=== PATIENT | female | born 2000 | race Caucasian/White ===

== ENCOUNTER 2018-12-25 09:50 | Outpatient (REF) | payer MEDICAID, SELFPAY | END 2018-12-25 10:10 | LOC: NCHCN 09:50 | PROVIDERS: Visit Provider Family Medicine | DX: R19.7 Diarrhea, unspecified (principal) | CPT/HCPCS: 87324 ==

== ENCOUNTER 2019-01-12 01:12 | Outpatient (CLI) | payer MEDICAID, MEDICARE, SELFPAY ==
--- NOTE | 2019-01-12 14:00 | NS.NUTBLAN_ITS ---
DESCRIPTION: Bambi Sanderson was brought in for medical nutrition therapy for underweight as evidenced by BMI estimated at 14 based on height of 5'. She is accompanied by 3 caregivers. Caregivers report she is tube fed 5 cans Ensure per day in 4 servings; Recently increased from 4.5 to 5 cans with ~2 weeks of vomiting post increase. Otherwise does not have any observable problems with her nutritional status reported by caregivers. Bambi is unable to walk and appears wheelchair bound. She does not communicate with words. She is unable to hold her head up independently for oral feeding. Her lab work from 05/04 indicate low iron. Otherwise no remarkable nutrition indicators seen. INTERVENTION: Given that weight gain is desired by caregivers, discussed ways to increase her weight slowly by increasing calories gradually. She had difficulty with an increase of 2 ounces every 4 hours. Discussed a more concentrated formula that does not increase volume. Agreed upon assessment with instructions recommended as follows: Weight to reach BMI 19 based on estimated height of 60? is 96 pounds. Reasonable weight increase over the next year is to reach 70 pounds. Based on her current body weight and estimated height ? Basal Energy Expenditure = 1100 calories. Current 5 cans Ensure ? 1100 calories In order to gain 1 pound/month increase calories by ~ 100 calories per day. Exchanging 1 can Ensure for 1 can Ensure Plus divided over her 4 daily feedings would provider her 130 calories extra per day. RECOMMENDATION: Suggest exchanging 1 can Ensure for 1 can Ensure Plus divided over 4 feedings. Assess acceptance by Bambi. She will receive 4 cans of Ensure and 1 can Ensure Plus to achieve 1230 kcal per day divided into 4 doses. Will consider a balanced formula containing additional fiber (Jevity) to attempt to improve constipation in the future, if desired.
== END 2019-01-12 01:32 ==
PROVIDERS: Visit Provider Dietitian, Registered
DX: R63.6 Underweight (principal); Z71.3 Dietary counseling and surveillance
CPT/HCPCS: 97802

== ENCOUNTER 2019-06-04 01:21 | Outpatient (CLI) | payer MEDICARE, MEDICAID, SELFPAY ==
--- NOTE | 2019-06-04 10:00 | NS.NUTBLAN_ITS ---
Description: Bambi was brought in for medical nutrition therapy by new caregivers and guardian for monitoring her weight and tolerance of bolus tube feedings. She was recently weighed at her MD visit and weighed 70 lbs. She was not weighed in office today as we do not have wheel chair accessible scale. She is 5 feet and is wheel chair bound. Her BMI is 14 but may not accurately reflect ideal weight as with paraplegia. She is 100% reliant on peg feedings now and caregivers are well trained in her care. Caregivers report she does not tolerate the liquid iron and they have stopped giving it do her as she frequently vomits when administered. They also report that she vomits up to 4 times a week when being suctioned. Bowel movements are regular. She is tolerating her 4 - 300 ml -bolus feedings (960 ml Ensure, 240 ml Ensure Plus) with 50 ml flush before and 150 ml after each bolus feeding. Current Regime provides total of 1350 kcal, 63 g protein, 1700 ml free water. Estimated needs for weight gain: 2355-9253 kcal, 40-50 g protein, 1000 ml free water. Meeting > 100% nutrient and fluid needs at this time. Since weight has increased since last visit (per caregivers) assume that Bambi is meeting her nutrient needs despite frequent vomiting with suctioning. No change in tube feeding/flushes warranted at this time. Of concern is low Hgb of 9.2 2018. Currently meeting > 100% of [employer] for iron in enteral feeding. recommend recheck Hgb/ferritin at next blood draw to determine if iron drops necessary or if enteral feeding adequately providing needed iron for repletion. Would also recommend checking B12 levels to rule out pernicious anemia. Plan: at next MD visit- recheck: Hgb, ferritin, B12, Vit D Continue current enteral feeding regime- 4 bolus feedings (4 cans ensure, 1 can ensure plus) continue flushes of 50 ml prior to feeding/150 ml after each feeding follow up in 3 months if weight has decreased or not tolerating enteral feeding.
== END 2019-06-04 01:41 ==
PROVIDERS: PCP Family Medicine; Visit Provider Dietitian, Registered
DX: R63.6 Underweight (principal); G80.8 Other cerebral palsy; Z93.1 Gastrostomy status; Z71.3 Dietary counseling and surveillance
CPT/HCPCS: 97803

== ENCOUNTER 2019-06-20 17:42 | Emergency (ER) | payer MEDICARE, MEDICAID, SELFPAY ==
[2019-06-20 17:37] VITALS: BP 133/77; PULSE 116; TEMP 36.8; O2SAT 97
--- NOTE | 2019-06-20 18:23 | W.ED.GENAD ---
Discharge Plan Disposition Patient Disposition: HOME Condition: Stable Discharge Details Chief Complaint: Abd Prob Clinical Impression: Dislodged gastrostomy tube Primary Care Provider: Karely Nguyen V ED Provider: Susana Duran Home Meds and New Rx's Prescriptions: Continued albuterol sulfate [ProAir HFA] 8.5 GM HFA aerosol inhaler 2 puff Inhalation Q4H PRN PRNRF: 0 zinc oxide [Desitin] 57 GM cream 1 applic Topical DIRECTED RF: 0 Discharge Instructions Instructions: How to Use and Care for Your PEG Tube (ED) Additional Instructions: Follow-up with your primary care doctor within the next week as needed. Return to the emergency department if you develop any worsening or concerning symptoms such as fever, persistent vomiting or malfunctioning G-tube. Discharge Data Discharge Date/Time-TO BE ENTERED AT DEPARTURE: 06/20/19 18:30 Discharge Physician: Susana Duran Medical Decision Making 18-year-old female with a history of developmental delay, cerebral palsy, with PEG tube placed 4 years ago presents for dislodged G-tube 10 minutes prior to arrival. Patient arrived with both caregivers and new G-tube kit. They state she has a history of pulling at the G-tube. They deny any fever or vomiting. Patient arrived during critical surge in ED. Surgery on-call Dr. Barr consulted and she evaluated patient at bedside and replaced with new G-tube. Patient appears nontoxic. Her abdomen is soft and nontender. No indication for any further labs or imaging. Patient cleared for discharge. Caregivers feel comfortable with patient going home. Advised to follow-up with her primary care doctor and return here with any concerns. HPI General Mode of arrival: EMS. Date/Time Provider Initiated Documentation: 06/20/19 17:47. Limitations to Documentation: physical limitation. Information obtained by: family (2 caretakers). Related Data Home Medications Medication Instructions Recorded Confirmed albuterol sulfate [ProAir HFA] 2 puff INHALATION Q4H PRN PRN 05/16/17 05/28/17 zinc oxide [Desitin] 1 applic TOPICAL DIRECTED 05/16/17 05/28/17 Allergies Allergy/AdvReac Type Severity Reaction Status Date / Time amoxicillin [From Augmentin] AdvReac Unknown moderate Unverified 06/20/19 17:47 clavulanic acid AdvReac Unknown moderate Unverified 06/20/19 17:47 [From Augmentin] General Stated Complaint: Abd Prob PIERO: 3 Review of Systems All systems reviewed & are unremarkable except as noted in HPI and below Constitutional Constitutional: Reports as per HPI, Denies chills and Denies fever(s) Gastrointestinal Gastrointestinal: Denies vomiting Integumentary/Breasts Skin/Breast: Denies lesions and Denies rash [facility] Medical History Asthma (Chronic) Cognitive developmental delay (Acute) Hip dysplasia (Acute) History of cerebral palsy (Acute) Surgical History S/P percutaneous endoscopic gastrostomy (PEG) tube placement (Acute) Social History Do you feel safe in your relationship?: Yes Exam Const General: cooperative, no acute distress and ill appearing chronically HENMT Head: normal to inspection Eyes General: appearance normal, both eyes and all related structures Neck Neck: normal visual inspection and No submandibular swelling Resp Effort & Inspection: normal respiratory effort Auscultation: clear to auscultation bilaterally Cardio Rate: tachycardic Rhythm: regular rhythm GI Palpation: soft, not firm, not rigid and nontender Auscultation: hypoactive bowel sounds Other: G-tube present in epigastrium. No surrounding edema, erythema, ecchymosis, bleeding, drainage, induration or fluctuance. Skin General skin exam: no rashes or lesions noted Neuro General: awake and moves all extremities Extrem General: no edema Other: Small atrophied extremities Course Vital Signs Vital signs: Vital Signs Temperature 98.2 F 06/20/19 17:37 Pulse 116 H 06/20/19 17:37 Blood Pressure 133/77 06/20/19 17:37 Pulse Oximetry 97 06/20/19 17:37 Temperature 98.2 F 06/20/19 17:37 Temperature Source Skin 06/20/19 17:37 Pulse 116 H 06/20/19 17:37 Respiratory Effort Non-Labored 06/20/19 17:45 Blood Pressure 133/77 06/20/19 17:37 Blood Pressure Position Supine 06/20/19 17:37 Pulse Oximetry 97 06/20/19 17:37 Oxygen Delivery Method Room Air 06/20/19 17:37 Oxygen Flow Rate 0 06/20/19 17:37
--- NOTE | 2019-06-21 10:32 | ROE_ITS ---
DATE OF PROCEDURE: June 20, 2019 PREOPERATIVE DIAGNOSIS: Unintended dislodgement of feeding tube. POSTOPERATIVE DIAGNOSIS: Same. PROCEDURE: Insertion of new feeding tube. SURGEON: Hilda Barr D.O. ANESTHESIA: None. ESTIMATED BLOOD LOSS: None. CONDITION: The patient tolerated the procedure well without complication. 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 Her feeding tube fell out today. She's had the feeding tube in for approximately five years. She was due for a schedule feeding tube. Her caregivers do bring in the new tube and it's a 16 [place], 2 cm tube. EXAM/PROCEDURE: Her fistulous opening is well matured. There is no redness, drainage of swelling. There is normal granulation tissue. The new tube is inserted. It is not floppy or tight. The balloon is inflated with 5 cc's of water. There is immediate return of gastric contents. It is easily flushed and capped. The incision is clean, dry and intact. There is no redness, drainage or swelling. The patient doesn't have any pain. Sterile dressing is placed around the tube and the patient is discharged into the company of her caregivers back to her skilled nursing. They can use her feeding tube tonight.
== END 2019-06-20 18:30 | disposition home or self-care (01) ==
PROVIDERS: Emergency Provider Physician Assistant; PCP Family Medicine
DX: K94.29 Other complications of gastrostomy (principal); G80.9 Cerebral palsy, unspecified
CPT/HCPCS: 43762; 99284; 99283

== ENCOUNTER 2019-11-02 14:29 | Outpatient (CLI) | payer MEDICARE, MEDICAID, SELFPAY ==
--- NOTE | 2019-11-02 14:41 | DI.RAD_ITS ---
EXAM: XR HIP PELVIS ADULT BL CLINICAL HISTORY: HIP PAIN. TECHNIQUE: 2D digital imaging was performed. COMPARISON: CT ABD PELVIS WO CONTRAST from 06/01/2017 FINDINGS: The right femoral head is dislocated posterior and superior to the acetabulum. This appears to be a chronic finding. Was seen on previous CT from 18. There is deformity of both proximal femurs. No l eft hip dislocation is seen. There is no gross evidence of fracture. The sacrum is obscured by stoo l and bowel gas. IMPRESSION: Chronic right hip dislocation and chronic deformities of the proximal femurs. DATA REPOSITORY: RADIATION DOSE DELIVERED:
== END 2019-11-02 14:49 ==
PROVIDERS: PCP Family Medicine; Referring Provider Family Medicine; Visit Provider Student in an Organized Health Care Education/Training Program
DX: M25.551 Pain in right hip (principal); M24.451 Recurrent dislocation, right hip; M89.8X6 Other specified disorders of bone, lower leg
CPT/HCPCS: 73521; 99204; 99215

== ENCOUNTER 2019-11-02 15:56 | Outpatient (REF) | payer MEDICARE, MEDICAID, SELFPAY ==
[2019-11-02 19:39] LABS: HCT 37.2 % (36.0-46.0); HGB 11.6 g/dL (12.0-15.5); Mean Corp. HGB Concentration 31.2 g/dL (32.0-36.0); Mean Corpuscular Hemoglobin 26.2 pg (27.0-33.0); Mean Platelet Volume 10.6 fL (8.0-11.0); Platelet Count 372 x1000/uL (130-400); RBC 4.43 m/cumm (4.00-5.20); RBC Distribution Width 13.7 % (11.7-14.6); White Blood Cell Count 4.61 k/cumm (4.4-10.8)
[2019-11-02 20:29] LABS: ALT 31 U/L (14-59); AST 22 U/L (15-37); Albumin 3.6 g/dL (3.4-5.0); Alkaline Phosphatase 111 U/L (46-116); Anion Gap 9.8 mmol/L (3-11); BUN 11 mg/dL (7-18); Bilirubin, Total 0.2 mg/dL (0.2-1.0); CO2 29.2 mmol/L (21.0-32.0); CREATININE 0.41 mg/dL (0.55-1.02); Calcium 9.2 mg/dL (8.5-10.1); Chloride 103 mmol/L (98-107); Ferritin 100 ng/mL (8-252); Glucose 88 mg/dL (74-106); Potassium 4.4 mmol/L (3.5-5.1); Sodium 142 mmol/L (136-145); TSH 1.53 uIU/mL (0.36-3.74); Total Protein 7.5 g/dL (6.4-8.2)
[2019-11-02 20:31] LABS: Folate > 20.0 ng/mL (8.6-20.0)
[2019-11-02 22:37] LABS: C-Reactive Protein 1.22 mg/dL (0.0-0.3)
[2019-11-04 09:37] LABS: Vitamin B12 1256 pg/mL (211-911)
== END 2019-11-02 16:16 ==
LOC: NCHCN 15:56
PROVIDERS: PCP Family Medicine; Visit Provider Family Medicine
DX: D64.9 Anemia, unspecified (principal)
CPT/HCPCS: 80053; 85027; 82607; 82728; 82746; 84443; 86140

== ENCOUNTER 2019-11-04 10:07 | Outpatient (CLI) | payer MEDICARE, MEDICAID, SELFPAY | END 2019-11-04 10:27 | PROVIDERS: PCP Family Medicine; Visit Provider Family Medicine | DX: R69 Illness, unspecified (principal) | CPT/HCPCS: 99204 ==

== ENCOUNTER 2019-12-17 13:53 | Outpatient (CLI) | payer MEDICARE, MEDICAID, SELFPAY ==
--- NOTE | 2019-12-17 13:00 | NS.NUTBLAN_ITS ---
Bambi was brought in by home care provider (Christine) for medical nutrition therapy to follow up on enteral feeding regime. This is second visit, initial visit 06/04/19. Bambi has CP, cleft palate, paraplegic and reliant on enteral feeding for 100% nutrient and fluid needs. Bambi has gained 9 lbs in last 6 months. Estimated Needs for weight gain: 9806-3258 kcal, 40-50 g protein, 1300 ml fluid. Current tube feeding regime 4 feedings of 300 ml (run over 2 hours)- 960 ml Ensure, 237 ml Ensure Plus. Flushes 60 ml prior to feeding, 80 ml post feeding providing a total of 1350 kcal, 63 g protein, 1510 ml free water. Christine, reports that Bambi is tolerating her tube feeding, needs less suctioning but continues to vomit every other day or so. Bambi has gained 29 lbs in the last year. Labs (11/02/19) B12: 1256 H, folate > 20 H, Hgb 11.6 L. BM reported as regular, mirilax given as needed. No longer needs to strain for BM. Liquid iron added to tube feeding. Assessment: Bambi is meeting 100% of nutrient and fluid needs for weight gain via peg. Tolerating current enteral feeding, continues to have some vomiting related to increased secretions that require suctioning. Secretion have improved, vomiting has reduced and does not appear to significantly impact nutrient intake. Bambi appears well cared for, well nourished and hydrated. Goal weight initially set as 96 lbs, however, due to her paraplegia, inactivity, reduced muscle formation, recommend goal weight as 80-85 lbs. Recommend to continue current tube feeding until goal weight of 80-85 lbs, then will reduce her caloric intake to for weight maintenance. Labs indicate improved hemoglobin, hypercobalaminemia noted but current tube feeding does not provide excessive B12 or folic acid (meeting 100% RDI). Recommend discontinue iron supplement at this time as receiving 125% RDI in enteral formula which is adequate for repletion with current Hgb level. . Recommend adding 2 more free water flushes (100-200 ml) between feedings when temp > 80 F or if BM becomes hard. Plan: 1. continue current tube feeding regime, add 2 additional flushes (100-200 ml) in between feedings when temp > 80 F. 2. d/c Iron supplement at this time as enteral feeding contains sufficient iron at this time 3. follow up in 6 months or if weight > 85 lbs for tube feeding adjustment for weight maintenance or if unable to tolerate tube feedings.
== END 2019-12-17 14:13 ==
PROVIDERS: PCP Family Medicine; Visit Provider Dietitian, Registered
DX: R63.6 Underweight (principal); Z93.1 Gastrostomy status; Z71.3 Dietary counseling and surveillance
CPT/HCPCS: 97803

== ENCOUNTER 2020-06-06 04:23 | Outpatient (CLI) | payer MEDICARE, MEDICAID, SELFPAY ==
--- NOTE | 2020-06-06 13:00 | NS.NUTBLAN_ITS ---
Astrid returns with critical care transport nurse Xenia for reassessment of tube feeding prescription. Ozzie lift: 92.4 lbs. Astrid is up 5 lbs in last 6 months. Xenia reports that Astrid is menstruating and that she has become more vocal and interactive. Xenia reports less suctioning is needed and vomiting is seldom. BM typically daily, mirilax used prn. She is tolerating liquid iron as prescribed. Estimated Needs for weight maintenance: 900-1000 kcal, 38-40 g protein, 1230 ml free water At this time, Astrid has reached her goal weight (92-95 lbs) and we can decrease the amount of tube feeding provided. I recommend switching to 3 feedings daily of ensure plus(1 can per feeding) with 100 ml flush pre and post bolus. Continue to run each feeding over 1-2 hours or as tolerated. This will provide: 1080 kcal, 40 g protein, 1140 ml free water. Provide extra flushes as needed. Plan: change enteral feeding to: 3 cans daily Ensure Plus Daily ( 237 x 3= 711 ml) 3 feedings daily of: 237 ml Ensure Plus, flush 100 ml before and after each feeding ( 600 ml daily) follow up in 6 months for weigh check
== END 2020-06-06 04:43 ==
PROVIDERS: PCP Family Medicine; Visit Provider Dietitian, Registered
DX: E43 Unspecified severe protein-calorie malnutrition (principal); Z93.1 Gastrostomy status; Z71.3 Dietary counseling and surveillance
CPT/HCPCS: 97803

== ENCOUNTER 2020-08-25 16:32 | Outpatient (REF) | payer MEDICARE, MEDICAID, SELFPAY ==
[2020-08-25 15:07] LABS: HCT 34.3 % (36.0-46.0); HGB 10.8 g/dL (11.2-15.7); MCH 25.5 pg (27.0-33.0); MCHC 31.5 % (32.0-36.0); MCV 80.9 fL (80-95); MPV 10.3 fL (8.0-11.0); Platelet Count 411 10^3/uL (130-400); RBC 4.24 10^6/uL (3.93-5.22); RDW-SD 40.4 fL; WBC 4.36 10^3/uL (4.4-10.8)
[2020-08-25 15:37] LABS: ALT 24 U/L (14-59); AST 18 U/L (15-37); Albumin 3.1 g/dL (3.4-5.0); Alkaline Phosphatase 75 U/L (46-116); Anion Gap 8.8 mmol/L (3-11); BUN 8 mg/dL (7-18); Bilirubin, Total 0.1 mg/dL (0.2-1.0); CO2 29.2 mmol/L (21.0-32.0); CREATININE 0.3 mg/dL (0.55-1.02); Calcium 8.9 mg/dL (8.5-10.1); Chloride 105 mmol/L (98-107); Ferritin 71 ng/mL (8-252); Glucose 101 mg/dL (74-106); Potassium 4.1 mmol/L (3.5-5.1); Sodium 143 mmol/L (136-145); Total Protein 6.8 g/dL (6.4-8.2)
== END 2020-08-25 16:33 | disposition home or self-care (01) ==
LOC: NCHCN 16:32
PROVIDERS: PCP Family Medicine; Visit Provider Family Medicine
DX: D64.9 Anemia, unspecified (principal); G80.1 Spastic diplegic cerebral palsy; Z93.1 Gastrostomy status
CPT/HCPCS: 80053; 85027; 82728

== ENCOUNTER 2021-12-17 12:01 | Outpatient (CLI) | payer MEDICARE, MEDICAID, SELFPAY ==
--- NOTE | 2021-12-17 14:27 | W.NUTRFU ---
Date of service: 12/17/21 Time of Service: 14:28 Nutrition Note NOTE: Spoke to Faith on phone today, she is Bambi's home care provider. She reports that Bambi has lost weight, weighed 86 lbs, down from 93 lbs a couple of months ago. Iron remains on low end. Estimated Needs: 2204-0909 kcal, 42-50 g protein, 1260 ml fluid Goal Wt: 92 lbs PEG feedings: 3 cartons of Ensure Plus daily providing 1050 kcal, 42 g protein, 33 g fat, 540 ml free water. Receives 600 ml flushes daily. 1140 ml total free water In view of recent weight loss, recommend adding an additional feeding (1 carton Ensure Plus) every other day. Currently meeting 100% macronutrient needs for weight maintenance but has lost weight. Additional feedings every other day should help her to regain to ideal weight of 92 lbs. Also, can add 120 ml Ensure Plus daily to current feeding regime. Provide flushes as ordered. Recommend adding liquid iron to apple juice - 4 ounces daily per PEG. Reweigh in 8 weeks. Time Spent in Nutritional Counseling and Treatment: 20
== END 2021-12-17 12:02 | disposition home or self-care (01) ==
LOC: DS 12:05
PROVIDERS: PCP Family Medicine; Visit Provider Dietitian, Registered

== ENCOUNTER 2022-03-12 17:57 | Outpatient (REF) | payer MEDICARE, MEDICAID, SELFPAY ==
[2022-03-12 18:11] LABS: ESR 55 mm/hr (0-20)
[2022-03-12 18:13] LABS: HCT 33.7 % (36.0-46.0); HGB 10.1 g/dL (11.2-15.7); MCH 25.3 pg (27.0-33.0); MCV 85 fL (80-95); MPV 11.4 fL (8.0-11.0); Platelet Count 337 10^3/uL (130-400); RBC 3.99 10^6/uL (3.93-5.22); RDW 17.8 % (11.7-14.6); RDW-SD 55.2 fL; WBC 3.66 10^3/uL (4.4-10.8)
[2022-03-12 18:54] LABS: ALT 18 U/L (14-59); AST 20 U/L (15-37); Albumin 3.4 g/dL (3.4-5.0); Alkaline Phosphatase 59 U/L (46-116); Anion Gap 9.2 mmol/L (3-11); BUN 10 mg/dL (7-18); Bilirubin, Total 0.2 mg/dL (0.2-1.0); CO2 25.8 mmol/L (21.0-32.0); CREATININE 0.5 mg/dL (0.55-1.02); Calcium 9.4 mg/dL (8.5-10.1); Chloride 104 mmol/L (98-107); Estimated GFR 135.07 (mL/min/1.73m2); Ferritin 111 ng/mL (8-252); Glucose 92 mg/dL (74-106); Potassium 3.8 mmol/L (3.5-5.1); Sodium 139 mmol/L (136-145); TSH (W/Ref FT4) 1.89 uIU/mL (0.36-3.74); Total Protein 8.2 g/dL (6.4-8.2); Vitamin B12 1559 pg/mL (193-986)
[2022-03-12 19:02] LABS: C-Reactive Protein 0.53 mg/dL (0.0-0.3)
[2022-03-12 22:05] LABS: Iron 76 ug/dL (50-170); Total Iron Binding Capacity 336 ug/dL (250-450); Transferrin Sat 23 % (15-50)
[2022-03-13 21:51] LABS: Rheumatoid Factor <8.6 IU/mL (<12.0)
[2022-03-14 14:46] LABS: ANA Interpretation Negative (Negative)
[2022-03-18 12:01] LABS: IgA 433 mg/dL (85-499); Interpretation (See Note); Tissue Transglutaminase IgA 1.5 U/mL (<4.0)
== END 2022-03-12 17:58 | disposition home or self-care (01) ==
LOC: NCHCN 17:57
PROVIDERS: PCP Family Medicine; Visit Provider Family Medicine
DX: D64.9 Anemia, unspecified (principal); R13.10 Dysphagia, unspecified; J98.4 Other disorders of lung; R70.0 Elevated erythrocyte sedimentation rate; G80.8 Other cerebral palsy
CPT/HCPCS: 80053; 82784; 83516; 85027; 85652; 82607; 82728; 83540; 83550; 84443; 86038; 86140; 86431

== ENCOUNTER 2022-04-08 18:02 | Outpatient (REF) | payer MEDICARE, MEDICAID, SELFPAY ==
[2022-04-08 20:20] LABS: Bacteria Rare HPF (Negative); Epithelial Cells Rare HPF (Negative); RBC 0-2 HPF (0-2); WBC 0-2 HPF (0-5)
[2022-04-08 20:21] LABS: C & S Indicated? C&S Done As Ordered; Crystals Moderate Amorphous HPF (Negative); Mucus Negative (Negative)
== END 2022-04-08 18:03 | disposition home or self-care (01) ==
LOC: NCHCN 18:02
PROVIDERS: PCP Family Medicine; Visit Provider Family Medicine
DX: R82.998 Other abnormal findings in urine (principal); M25.551 Pain in right hip
CPT/HCPCS: 81015; 87086

== ENCOUNTER → 2022-04-09 12:29 | Outpatient (CLI) | payer MEDICARE, MEDICAID, SELFPAY ==
--- NOTE | 2022-04-09 11:31 | DI.RAD_ITS ---
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 Two images were obtained. PA and lateral views were obtained. COMPARISON: CR PORTABLE CHEST ONE VIEW from 05/16/2017 FINDINGS: MEDIASTINUM: Normal. HEART: Normal. PULMONARY VASCULATURE: Normal. LUNGS: Clear. PLEURAL SPACE: No pleural effusion or pneumothorax. BONE:Within normal limits for the patient's age. OTHER FINDINGS:Normal. IMPRESSION: No acute pulmonary findings. DATA REPOSITORY: RADIATION DOSE DELIVERED:
== END ==
PROVIDERS: PCP Family Medicine; Visit Provider Family Medicine
DX: J69.0 Pneumonitis due to inhalation of food and vomit (principal); G80.9 Cerebral palsy, unspecified
CPT/HCPCS: 71046

== ENCOUNTER 2022-05-06 14:40 | Outpatient (REF) | payer MEDICARE, MEDICAID, SELFPAY ==
[2022-05-06 16:38] LABS: HCT 32.7 % (36.0-46.0); HGB 10.1 g/dL (11.2-15.7); MCH 26.2 pg (27.0-33.0); MCHC 30.9 % (32.0-36.0); MCV 85 fL (80-95); MPV 10.8 fL (8.0-11.0); Platelet Count 374 10^3/uL (130-400); RBC 3.85 10^6/uL (3.93-5.22); RDW 15.4 % (11.7-14.6); RDW-SD 46.6 fL; WBC 4.47 10^3/uL (4.4-10.8)
== END 2022-05-06 14:41 | disposition home or self-care (01) ==
LOC: NCHCN 14:40
PROVIDERS: PCP Family Medicine; Visit Provider Family Medicine
DX: D64.9 Anemia, unspecified (principal)
CPT/HCPCS: 85027

== ENCOUNTER 2022-06-20 15:59 | Outpatient (REF) | payer MEDICARE, MEDICAID, SELFPAY ==
[2022-06-20 15:17] LABS: HCT 34.1 % (36.0-46.0); HGB 10.8 g/dL (11.2-15.7); MCH 26.6 pg (27.0-33.0); MCHC 31.7 % (32.0-36.0); MCV 84 fL (80-95); MPV 10.6 fL (8.0-11.0); Platelet Count 388 10^3/uL (130-400); RBC 4.06 10^6/uL (3.93-5.22); RDW 13.6 % (11.7-14.6); RDW-SD 41.6 fL
== END 2022-06-20 16:00 | disposition home or self-care (01) ==
LOC: NCHCN 15:59
PROVIDERS: PCP Family Medicine; Visit Provider Family Medicine
DX: R21 Rash and other nonspecific skin eruption (principal)
CPT/HCPCS: 85027; 87077; 87070; 87186; 87205

== ENCOUNTER 2022-10-01 20:14 | Emergency (ER) | payer MEDICARE, MEDICAID, SELFPAY ==
[2022-10-01 20:17] VITALS: BP 116/89; PULSE 63; RESP 16; TEMP 36.6; O2SAT 94
--- OUTSIDE RECORDS SUMMARY | 2022-10-01 20:30 | XMS_ITS | Continuity of Care Document ---
Author Name Unknown Organization [facility] Address [address] [place] [address] Encounter LTTL_UT FIN NBR [id number] Date(s): 07/15/22 - 07/18/22 [facility] [address], [place] [id number] Encounter Diagnosis Cerebral palsy(Discharge Diagnosis) - 07/15/22 Pneumonia(Discharge Diagnosis) - 07/15/22 Urinary tract infection(Discharge Diagnosis) - 07/15/22 Fluid depletion(Discharge Diagnosis) - 07/16/22 Viral illness(Discharge Diagnosis) - 07/16/22 Discharge Disposition: Home w/ Home Health Care Attending Physician: Zac Kiser MD Admitting Physician: Zac Kiser MD Allergies, Adverse Reactions, Alerts Substance Reaction Severity Status Augmentin Unknown Unknown Active Functional Status 07/18/22 Current Home Treatments Nebulizer treatm ents, Tube feeding Home Equipment Hospital bed, Mechanical lift, Nebulizer, Pulse oximeter, Suction unit, Wheelchair Special Services and Community Resources library attendant 07/18/22 Living Environment Living Situation: Current Home Treatments: Nebulizer treatments, Tube feeding Home Devices/Equipment Hospital bed, Mechanical lift, Nebulizer, Pulse oximeter, Suction unit, Wheelchair Professional Skilled Services: Special Services and Community Resources: Sensory Deficits: Nonverbal Performed by: Yolanda Ramires-07/16/22 09:13:00 Living Situation: Home with responsible caregiver Current Home Treatments: Home Devices/Equipment Professional Skilled Services: Special Services and Community Resources: Sensory Deficits: Performed by: Karlene Kwong-07/15/22 14:35:00 Lives In Single level home Lives With Caregiver Living Situation Home with responsibl e caregiver 07/18/22 Personal Care Provided Other: photographic reproduction technician set up for caregiver to complete Am care per request. 07/18/22 Activity Status ADL HOB elevated 07/16/22 ADLs Complete assist Positioning/Pressure Reducing Devices Alvaro salguero 07/15/22 Family Member Travel History No recent t manuel Recent Travel History No recent travel Other exposure to Infectious Disease COV ID-19 Symptoms Present Medications !-DuoNeb 0.5 mg-2.5 mg/3 mL inhalation solution 3 mL, NEB, QID, PRN as needed for shortness of breath or wheezing, 0 Refill(s) Start Date: 07/15/22 Status: Ordered Albuterol (Eqv-ProAir HFA) 90 mcg/inh inhalation aerosol 2 puffs, Inhale, every 4 hr, PRN as needed for wheezing, 0 Refill(s) Start Date: 07/15/22 Status: Ordered azithromycin 250 mg oral tablet 250 mg = 1 tab, Oral, Daily, 0 Refill(s) Start Date: 07/18/22 Stop Date: 07/20/22 Status: Ordered baclofen 10 mg oral tablet 10 mg = 1 tab, Oral, TID, # 270 tab, 0 Refill(s) Start Date: 07/15/22 Status: Ordered cefpodoxime 200 mg oral tablet 200 mg = 1 tab, Oral, every 12 hr, # 8 tab, 0 Refill(s), called to pharmacy (Rx) Start Date: 07/18/22 Stop Date: 07/22/22 Status: Ordered Depo-Provera Contraceptive 150 mg/mL intramuscular suspension 150 mg = 1 mL, IM, every 3 mo, # 1 mL, 0 Refill(s) Start Date: 07/15/22 Status: Ordered Flovent HFA 110 mcg/inh inhalation aerosol 2 puffs, Inhale, BID, # 12 g, 0 Refill(s) Start Date: 07/15/22 Status: Ordered iron dextran 50 mg/mL injectable solution 250 mg =, NG Tube, Daily, 5 mls daily, 0 Refill(s) Start Date: 07/15/22 Status: Ordered melatonin 3 mg oral tablet 3 mg = 1 tab, Oral, every day at bedtime, PRN as needed for insomnia, # 60 tab, 0 Refill(s) Start Date: 07/15/22 Status: Ordered Nyamyc 100,000 units/g topical powder 1 suzy, Topical, BID, # 30 g, 0 Refill(s) Start Date: 07/15/22 Status: Ordered [id number] oral powder for reconstitution 17 g, Oral, Daily, PRN constipation, 0 Refill(s) Start Date: 07/15/22 Status: Ordered Robafen 200 mg/10 mL oral liquid 300 mg = 15 mL, Oral, TID, DIRECTED WITH TUBE FEEDINGS Start Date: 07/15/22 Status: Ordered scopolamine 1 mg/72 hr transdermal film, extended release 1 film, Topical, every 48 hr, # 4 EA, 0 Refill(s) Start Date: 07/15/22 Status: Ordered triamcinolone 0.1% topical cream 1 suzy, Topical, BID, X 14 days, # 60 g, 0 Refill(s), 07/29/22 8:03:00 EDT Start Date: 07/15/22 Stop Date: 07/29/22 Status: Ordered Mental Status 07/17/22 Eye Opening Response [place] Spontaneous ly Best Verbal Response [place] Incomprehen sible sounds Best Motor Response [place] Localizes to noxious stimuli [place] Coma Score 11 Problem List Condition Confirmation Course Effective Dates Status Health St atus Informant Cerebral palsy Confirmed Active Results Laboratory List Name Date .Manual Differential (LTTL) 07/18/22 Basic Metabolic Panel (BMP) 07/18/22 CBC w/ Diff 07/18/22 .Manual Differential (LTTL) 07/17/22 Basic Metabolic Panel (BMP) 07/17/22 CBC w/ Diff 07/17/22 .Manual Differential (LTTL) 07/16/22 Basic Metabolic Panel (BMP) 07/16/22 CBC w/ Diff 07/16/22 Lactic Acid 07/15/22 Lactic Acid 07/15/22 Lactic Acid 07/15/22 Urinalysis Microscopic 07/15/22 Urinalysis with Micro if Indicated and C ulture if Indicated 07/15/22 .Manual Differential (LTTL) 07/15/22 Comprehensive Metabolic Panel 07/15/22 Procalcitonin 07/15/22 Respiratory Panel 2.1 ([employer]) 07/15/22 SARS-CoV-2 (Covid-19) AG (Chanda) POCT Most recent to oldest [Reference Range]: 1 2 3 WBC [4.8-10.8 K/mcL] 2.0 K/mcL 1 *CRIT* (07/18/22 6:10 AM) 2.1 K/mcL 2 *CRIT* (07/17/22 6:39 AM) 2.1 K/mcL 3 *CRIT* (07/16/22 6:43 AM) RBC [4.20-5.40 Million/mcL] 3.35 Million /mcL *LOW* (07/18/22 6:10 AM) 3.28 Million/mcL *LOW* (07/17/22 6:39 AM) 3.10 Million/mcL *LOW* (07/16/22 6:43 AM) Segs Man 33 *NA* (07/18/22 6:10 AM) 19 *NA* (07/17/22 6:39 AM) 37 *NA* (07/16/22 6:43 AM) Lymph Man [20.5-51.1 %] 54.0 % *HI* (07/18/22 6:10 AM) 74.0 % *HI* (07/17/22 6:39 AM) 58.0 % *HI* (07/16/22 6:43 AM) Stephens Man [1.7-9.3 %] 7.0 % (07/18/22 6:10 AM) 5.0 % (07/17/22 6:39 AM) 3.0 % (07/16/22 6:43 AM) Eos Man [0.00-3.00 %] 4.00 % *HI* (07/18/22 6:10 AM) 1.00 % (07/17/22 6:39 AM) 0.00 % (07/16/22 6:43 AM) BUN [8-26 mg/dL] 7 mg/dL *LOW* (07/18/22 6:10 AM) 7 mg/dL *LOW* (07/17/22 6:39 AM) 9 mg/dL (07/16/22 6:43 AM) UA Color [Yellow] Lesley *ABN* (07/15/22 8:31 AM) UA WBC [0-3] 50-99 *ABN* (07/15/22 8:31 AM) Glucose Level [74-106 mg/dL] 98 mg/dL (07/18/22 6:10 AM) 96 mg/dL (07/17/22 6:39 AM) 107 mg/dL *HI* (07/16/22 6:43 AM) [place] 1 % *NA* (07/15/22 7:47 AM) Potassium Level [3.5-5.1 mmol/L] 4.1 mmol/L (07/18/22 6:10 AM) 3.9 mmol/L (07/17/22 6:39 AM) 3.3 mmol/L *LOW* (07/16/22 6:43 AM) MCV [81.0-99.0 fL] 83.0 fL (07/18/22 6:10 AM) 83.8 fL (07/17/22 6:39 AM) 83.9 fL (07/16/22 6:43 AM) UA Urobilinogen [0.2] 0.2 (07/15/22 8:31 AM) RBC Morph [Normal] Normal (07/18/22 6:10 AM) Normal (07/17/22 6:39 AM) Normal (07/16/22 6:43 AM) UA Bili [Negative] Negative (07/15/22 8:31 AM) UA Ketones [Negative] Trace *ABN* (07/15/22 8:31 AM) AST [15-41 IntlUnit/L] 35 IntlUnit/L (07/15/22 7:47 AM) ALT [14-54 IntlUnit/L] 28 IntlUnit/L (07/15/22 7:47 AM) MCHC [32.0-36.0 g/dL] 32.4 g/dL (07/18/22 6:10 AM) 32.4 g/dL (07/17/22 6:39 AM) 32.3 g/dL (07/16/22 6:43 AM) Osmolality [275-295 mOsm/kg] 272 mOsm/kg *LOW* (07/18/22 6:10 AM) 270 mOsm/kg *LOW* (07/17/22 6:39 AM) 273 mOsm/kg *LOW* (07/16/22 6:43 AM) Sodium Level [134-143 mmol/L] 137 mmol/L (07/18/22 6:10 AM) 136 mmol/L (07/17/22 6:39 AM) 137 mmol/L (07/16/22 6:43 AM) UA RBC [0-3] 25-50 *ABN* (07/15/22 8:31 AM) UA Leuk Est [Negative] Large *ABN* (07/15/22 8:31 AM) UA Nitrite [Negative] Negative (07/15/22 8:31 AM) UA Glucose [Negative] Negative (07/15/22 8:31 AM) Hct [37.0-47.0 %] 27.8 % *LOW* (07/18/22 6:10 AM) 27.5 % *LOW* (07/17/22 6:39 AM) 26.0 % *LOW* (07/16/22 6:43 AM) UA Bacteria [None Seen] 2+ *ABN* (07/15/22 8:31 AM) Calcium Level [8.9-10.3 mg/dL] 9.0 mg/dL (07/18/22 6:10 AM) 8.8 mg/dL *LOW* (07/17/22 6:39 AM) 8.1 mg/dL *LOW* (07/16/22 6:43 AM) Albumin Level [3.5-5.0 g/dL] 3.0 g/dL *LOW* (07/15/22 7:47 AM) Protein Total [6.5-8.1 g/dL] 7.6 g/dL (07/15/22 7:47 AM) UA Protein [Negative] 100 *ABN* (07/15/22 8:31 AM) MCH [27.0-31.0 pg] 26.9 pg *LOW* (07/18/22 6:10 AM) 27.1 pg (07/17/22 6:39 AM) 27.1 pg (07/16/22 6:43 AM) Bilirubin Total [0.2-1.2 mg/dL] 0.1 mg/dL *LOW* (07/15/22 7:47 AM) Hgb [12.0-16.0 g/dL] 9.0 g/dL *LOW* (07/18/22 6:10 AM) 8.9 g/dL *LOW* (07/17/22 6:39 AM) 8.4 g/dL *LOW* (07/16/22 6:43 AM) Alk Phos [38-130 IntlUnit/L] 34 IntlUnit /L *LOW* (07/15/22 7:47 AM) UA Blood [Negative] Large *ABN* (07/15/22 8:31 AM) MPV [7.4-10.4 fL] 11.7 fL *HI* (07/18/22 6:10 AM) 12.1 fL *HI* (07/17/22 6:39 AM) 11.9 fL *HI* (07/16/22 6:43 AM) Band Man 2 % *NA* (07/18/22 6:10 AM) 0 % *NA* (07/17/22 6:39 AM) 2 % *NA* (07/16/22 6:43 AM) UA Spec Grav 1.020 *NA* (07/15/22 8:31 AM) Platelets [130-400 K/mcL] 256 K/mcL (07/18/22 6:10 AM) 211 K/mcL (07/17/22 6:39 AM) 185 K/mcL (07/16/22 6:43 AM) CO2 [22-32 mmol/L] 21 mmol/L *LOW* (07/18/22 6:10 AM) 20 mmol/L *LOW* (07/17/22 6:39 AM) 24 mmol/L (07/16/22 6:43 AM) Lactic Acid Lvl [0.5-2.2 mmol/L] 1.8 mmol/L (07/15/22 10:57 PM) 2.9 mmol/L *HI* (07/15/22 6:05 PM) 4.9 mmol/L *HI* (07/15/22 3:03 PM) UA Squam Epithelial [0-3] 6-10 *ABN* (07/15/22 8:31 AM) UA pH 6.00 *NA* (07/15/22 8:31 AM) UA Renal Epithelial [None Seen] 0-3 *ABN* (07/15/22 8:31 AM) UA Appear [Clear] Cloudy *ABN* (07/15/22 8:31 AM) Chloride Level [98-111 mmol/L] 105 mmol/L (07/18/22 6:10 AM) 104 mmol/L (07/17/22 6:39 AM) 104 mmol/L (07/16/22 6:43 AM) Procalcitonin [0.00-0.08] 7.37 *HI* (07/15/22 7:47 AM) RDW-CV [11.5-14.5 %] 15.0 % *HI* (07/18/22 6:10 AM) 15.3 % *HI* (07/17/22 6:39 AM) 15.2 % *HI* (07/16/22 6:43 AM) Adenovirus RespP-BFire [Not Detected] Not Detected (07/15/22 7:47 AM) Bordetella parapertussis RespP-BFire [Not Detected] Not Detected (07/15/22 7:47 AM) Bordetella pertussis RespP-BFire [Not Detected] Not Detected (07/15/22 7:47 AM) Chlamydophila pneumoniae RespP-BFire [Not Detected] Not Detected (07/15/22 7:47 AM) Coronavirus 229E (Not COVID-19) RP-BFire [Not Detected] Not Detected (07/15/22 7:47 AM) Coronavirus HKU1 (Not COVID-19) RP-BFire [Not Detected] Not Detected (07/15/22 7:47 AM) Coronavirus NL63 (Not COVID-19) RP-BFire [Not Detected] Not Detected (07/15/22 7:47 AM) Coronavirus OC43 (Not COVID-19) RP-BFire [Not Detected] Not Detected (07/15/22 7:47 AM) Human Metapneumonovirus RespP-BFire [Not Detected] Not Detected (07/15/22 7:47 AM) Human Rhinovirus/Enterovirus RespP-BFir [Not Detected] Not Detected (07/15/22 7:47 AM) Influenza A RespP-BFire [Not Detected] Not Detected (07/15/22 7:47 AM) Influenza B RespP-BFire [Not Detected] Not Detected (07/15/22 7:47 AM) Mycomplasma pneumoniae RespP-BFire [Not Detected] Not Detected (07/15/22 7:47 AM) Parainfluenza Virus 1 RespP-BFire [Not Detected] Not Detected (07/15/22 7:47 AM) Parainfluenza Virus 2 RespP-BFire [Not Detected] Not Detected (07/15/22 7:47 AM) Parainfluenza Virus 3 RespP-BFire [Not Detected] Detected *ABN* (07/15/22 7:47 AM) Parainfluenza Virus 4 RespP-BFire [Not Detected] Not Detected (07/15/22 7:47 AM) Respiratory Syncytial Virus RespP-BFire [Not Detected] Not Detected (07/15/22 7:47 AM) A/G Ratio 0.7 *NA* (07/15/22 7:47 AM) BUN/Creat Ratio [8.0-20.0] 29.0 *HI* (07/16/22 6:43 AM) 22.5 *HI* (07/15/22 7:47 AM) Globulin 4.6 *NA* (07/15/22 7:47 AM) UA Culture Ind?. [No] Yes (07/15/22 8:31 AM) Urine Srce Straight Cath (07/15/22 8:31 AM) UA Amorph [None Seen] Few *ABN* (07/15/22 8:31 AM) Abs Baso Man [0.0-0.2 K/mcL] 0.0 K/mcL (07/18/22 6:10 AM) 0.0 K/mcL (07/17/22 6:39 AM) 0.0 K/mcL (07/16/22 6:43 AM) Abs Eos Man [0.0-0.2 K/mcL] 0.1 K/mcL (07/18/22 6:10 AM) 0.0 K/mcL (07/17/22 6:39 AM) 0.0 K/mcL (07/16/22 6:43 AM) Abs Lymph Man [1.2-3.4 K/mcL] 1.1 K/mcL *LOW* (07/18/22 6:10 AM) 1.6 K/mcL (07/17/22 6:39 AM) 1.2 K/mcL (07/16/22 6:43 AM) Abs Stephens Man [0.1-0.6 K/mcL] 0.1 K/mcL (07/18/22 6:10 AM) 0.1 K/mcL (07/17/22 6:39 AM) 0.1 K/mcL (07/16/22 6:43 AM) Abs Neut Man [1.4-6.5 K/mcL] 0.7 K/mcL *LOW* (07/18/22 6:10 AM) 0.4 K/mcL *LOW* (07/17/22 6:39 AM) 0.8 K/mcL *LOW* (07/16/22 6:43 AM) UA Trans Epi [None Seen] 50-99 *ABN* (07/15/22 8:31 AM) Creatinine Level [0.44-1.00 mg/dL] <0.30 mg/dL 4 *LOW* (07/18/22 6:10 AM) <0.30 mg/dL 5 *LOW* (07/17/22 6:39 AM) 0.31 mg/dL *LOW* (07/16/22 6:43 AM) SARS-CoV-2 (COVID-19) RP-BFire [Not Detected] Not Detected (07/15/22 7:47 AM) Plt Estimation Normal (07/18/22 6:10 AM) Normal (07/17/22 6:39 AM) Normal (07/16/22 6:43 AM) SARS-CoV or CoV-2 (COVID-19) Ag (Chanda) [Negative] Negative (07/15/22 6:58 AM) Employed in healthcare? Unknown *NA* (07/15/22 6:58 AM) Symptomatic as defined by CDC? Unknown *NA* (07/15/22 6:58 AM) Date of onset (Lab) Unknown *NA* (07/15/22 6:58 AM) Hospitalized due to COVID-19? Unknown *NA* (07/15/22 6:58 AM) In ICU? Unknown *NA* (07/15/22 6:58 AM) Group care resident? Unknown *NA* (07/15/22 6:58 AM) status? Unknown *NA* (07/15/22 6:58 AM) Anion Gap [3.0-12.0] 11.0 (07/18/22 6:10 AM) 12.0 (07/17/22 6:39 AM) 9.0 (07/16/22 6:43 AM) Baso Man [0.0-0.8 %] 0.0 % (07/18/22 6:10 AM) 1.0 % *HI* (07/17/22 6:39 AM) 0.0 % (07/16/22 6:43 AM) eGFR CKD-EPI [>=60 mL/min/1.73 m2] 153 mL/min/1.73 m2 (07/18/22 6:10 AM) 153 mL/min/1.73 m2 (07/17/22 6:39 AM) 152 mL/min/1.73 m2 (07/16/22 6:43 AM) 1Result Comment: Results verified by repeat analysis. Called abd read back by Vijay Smith RN at 07/18/2022 06:54:50 EST NL 2Result Comment: Results verified by repeat analysis. Called and read back by Hilda Eagle RN at 07/17/2022 07:09:06 EST NL 3Result Comment: Results verified by repeat analysis. Called to and read back by Kamille Baez 07/16/2022 07:23:01 EST [place] 4Result Comment: Test results are consistent with previous values. 5Result Comment: Test results are consistent with previous values. Orders for Microbiology Reports Name Date Urine Culture 07/15/22 Blood Culture 07/15/22 Blood Culture 07/15/22 Microbiology Reports TEST:Urine Culture STATUS:Auth (Verified) BODY SITE: SOURCE:Urine, Catheterized COLLECTED DATE/TIME:07/15/22 8:31 AM FINAL REPORT 50,000 - 100,000 cfu/ml Escherichia coli >100,000 cfu/ml Streptococcus pyogenes (Group A) ORGANISM:Escherichia coli TEST:Blood Culture STATUS:Order in Progress BODY SITE:Left Arm SOURCE:Blood COLLECTED DATE/TIME:07/15/22 7:49 AM PRELIMINARY REPORT No growth at 2 days. TEST:Blood Culture STATUS:Order in Progress BODY SITE:Left Arm SOURCE:Blood COLLECTED DATE/TIME:07/15/22 7:47 AM PRELIMINARY REPORT No growth at 2 days. Radiology Reports * Exam Date Time Procedure Performing Provider Status 07/15/22 8:04 AM XR Chest 1 View Pilar Duggan; Auth (Ve rified) Notes: (XR Chest 1 View) Reason For Exam: Sepsis XR Chest 1 View EXAM DESCRIPTION: XR Chest 1 View 07/15/2022 INDICATION: SEPSIS COMPARISON: None IMPRESSION: Patchy areas of infiltrate in the right mid-lower lung field and left lung base region suspicious for pneumonia Normal cardiac size. Mild fullness in the right paratracheal region which may reflect mild adenopathy or vascular structures No significant pleural effusion or pneumothorax. JOB #: [id number] Final Signed by: Bruce Clemens MD Signed (Electronic Signature): 07/15/2022 8:19 am Vital Signs Most recent to oldest [Reference Range]: 1 2 3 Temperature Axillary [35.2-38 Deg C] 36.2 Deg C (07/18/22 7:26 AM) 37.4 Deg C (07/18/22 5:30 AM) 36.1 Deg C (07/18/22 12:29 AM) Temperature Tympanic [36.6-37.9 Deg C] 37.9 Deg C (07/15/22 6:51 AM) Temperature Temporal Artery [36-38 Deg C] 36.4 Deg C (07/17/22 3:38 PM) 36.0 Deg C (07/17/22 7:13 AM) 36.3 Deg C (07/17/22 4:00 AM) Temperature Temporal Artery (DegF) [97.3-100 Deg F] 97.34 Deg F (07/17/22 4:00 AM) 97.88 Deg F (07/16/22 7:00 PM) 96.8 Deg F *LOW* (07/16/22 8:08 AM) Peripheral Pulse Rate [60-100 bpm] 100 bpm (07/18/22 7:26 AM) 97 bpm (07/18/22 5:30 AM) 82 bpm (07/17/22 11:16 PM) Heart Rate Monitored [60-100 bpm] 107 bpm *HI* (07/17/22 3:38 PM) Respiratory Rate [12-24 br/min] 20 br/min (07/18/22 7:26 AM) 18 br/min (07/18/22 5:30 AM) 20 br/min (07/17/22 11:16 PM) Blood Pressure [90-140/60-90 mmHg] 118/88mmHg (07/18/22 7:26 AM) 131/87mmHg (07/18/22 5:30 AM) 129/75mmHg (07/17/22 11:16 PM) Mean Arterial Pressure, Cuff [65-140 mmHg] 88 mmHg (07/17/22 10:05 PM) 79 mmHg (07/17/22 4:00 AM) 73 mmHg (07/16/22 5:16 AM) Blood Pressure Location Left leg (07/18/22 7:26 AM) Left leg (07/17/22 11:16 PM) Left leg (07/17/22 3:38 PM) Blood Pressure Method Automatic (07/17/22 11:16 PM) Automatic (07/17/22 3:38 PM) Automatic (07/17/22 9:13 AM) Weight 42.460 kg (07/15/22 2:36 PM) Weight Dosing 42.460 kg (07/15/22 2:36 PM) 40.37 kg (07/15/22 7:11 AM) Weight Estimated 40.37 kg (07/15/22 6:51 AM) Height 152.400 cm (07/15/22 2:36 PM) Height/Length Dosing 152.400 cm (07/15/22 2:36 PM) 152.000 cm (07/15/22 7:11 AM) Body Mass Index 18.280 kg/m2 (07/15/22 2:36 PM) Height/Length Estimated 152.000 cm (07/15/22 6:51 AM) Social History Social History Type Response Tobacco Never tobacco user T obacco Use:. Sex Hospital Discharge Instructions Patient Education 07/18/2022 09:18:07 Viral Illness, Adult Viral Illness, Adult Viruses are tiny germs that can get into a person's body and cause illness. There are many different types of viruses, and they cause many types of illness. Viral illnesses can range from mild to severe. They can affect various parts of the body. Short-term conditions that are caused by a virus include colds and the flu (influenza). Long-term conditions that are caused by a virus include herpes, shingles, and HIV (human immunodeficiency virus) infection. A few viruses have been linked to certain cancers. What are the causes? Many types of viruses can cause illness. Viruses invade cells in your body, multiply, and cause theinfected cells to work abnormally or . When these cells , they release more of the virus. When this happens, you develop symptoms of the illness, and the virus continues to spread to other cells. If the virus takes over the function of the cell, it can cause the cell to divide and grow out ofcontrol. This happens when a virus causes cancer. Different viruses get into the body in different ways. You can get a virus by: ??? Swallowing food or water that has come in contact with the virus (is contaminated). ??? Breathing in droplets that have been coughed or sneezed into the air by an infected person. ??? Touching a surface that has been contaminated with the virus and then touching your eyes, nose,or mouth. ??? Being bitten by an insect or animal that carries the virus. ??? Having sexual contact with a person who is infected with the virus. ??? Being exposed to blood or fluids that contain the virus, either through an open cut or during atransfusion. If a virus enters your body, your body's defense system (immune system) will try to fight the virus. You may be at higher risk for a viral illness if your immune system is weak. What are the signs or symptoms? You may have these symptoms, depending on the type of virus and the location of the cells that it invades: ??? Cold and flu viruses: ??? Fever. ??? Headache. ??? Sore throat. ??? Muscle aches. ??? Stuffy nose (nasal congestion). ??? Cough. ??? Digestive system (gastrointestinal) viruses: ??? Fever. ??? Pain in the abdomen. ??? Nausea. ??? Diarrhea. ??? Liver viruses (hepatitis): ??? Loss of appetite. ??? Tiredness. ??? Skin or the white parts of your eyes turning yellow (jaundice). ??? Brain and spinal cord viruses: ??? Fever. ??? Headache. ??? Stiff neck. ??? Nausea and vomiting. ??? Confusion or sleepiness. ??? Skin viruses: ??? Warts. ??? Itching. ??? Rash. ??? Sexually transmitted viruses: ??? Discharge. ??? Swelling. ??? Redness. ??? Rash. How is this diagnosed? This condition may be diagnosed based on one or more of the following: ??? Symptoms. ??? Medical history. ??? Physical exam. ??? Blood test, sample of mucus from your lungs (sputum sample), stool sample, or a swab of body fluids or a skin sore (lesion). How is this treated? Viruses can be hard to treat because they live within cells. Antibiotic medicines do not treat viruses because these medicines do not get inside cells. Treatment for a viral illness may include: ??? Resting and drinking plenty of fluids. ??? Medicines to relieve symptoms. These can include [id number] medicine for pain and fever, medicines for cough or congestion, and medicines to relieve diarrhea. ??? Antiviral medicines. These medicines are available only for certain types of viruses. Some viral illnesses can be prevented with vaccinations. A common example is the flu shot. Follow these instructions at home: Medicines ??? Take [id number] and prescription medicines only as told by your health care provider. ??? If you were prescribed an antiviral medicine, take it as told by your health care provider. Do not stop taking the antiviral even if you start to feel better. ??? Be aware of when antibiotics are needed and when they are not needed. Antibiotics do not treat viruses. You may get an antibiotic if your health care provider thinks that you may have, or are at risk for, a bacterial infection and you have a viral infection. ??? Do not ask for an antibiotic prescription if you have been diagnosed with a viral illness. Antibiotics will not make your illness go away faster. ??? Frequently taking antibiotics when they are not needed can lead to antibiotic resistance. When this develops, the medicine no longer works against the bacteria that it normally fights. General instructions ??? Drink enough fluids to keep your urine pale yellow. ??? Rest as much as possible. ??? Return to your normal activities as told by your health care provider. Ask your health care provider what activities are safe for you. ??? Keep all follow-up visits as told by your health care provider. This is important. How is this prevented? To reduce your risk of viral illness: ??? Wash your hands often with soap and water for at least 20 seconds. If soap and water are not available, use hand physiology teacher. ??? Avoid touching your nose, eyes, and mouth, especially if you have not washed your hands recently. ??? If anyone in your household has a viral infection, clean all household surfaces that may have been in contact with the virus. Use soap and hot water. You may also use bleach that you have added water to (diluted). ??? Stay away from people who are sick with symptoms of a viral infection. ??? Do not share items such as toothbrushes and water bottles with other people. ??? Keep your vaccinations up to date. This includes getting a yearly flu shot. ??? Eat a healthy diet and get plenty of rest. Contact a health care provider if: ??? You have symptoms of a viral illness that do not go away. ??? Your symptoms come back after going away. ??? Your symptoms get worse. Get help right away if you have: ??? Trouble breathing. ??? A severe headache or a stiff neck. ??? Severe vomiting or pain in your abdomen. These symptoms may represent a serious problem that is an emergency. Do not wait to see if the symptoms will go away. Get medical help right away. Call your local emergency services (911 in the [place] Do not drive yourself to the hospital. Summary ??? Viruses are types of germs that can get into a person's body and cause illness. Viral illnessescan range from mild to severe. They can affect various parts of the body. ??? Viruses can be hard to treat. There are medicines to relieve symptoms, and there are some antiviral medicines. ??? If you were prescribed an antiviral medicine, take it as told by your health care provider. Do not stop taking the antiviral even if you start to feel better. ??? Contact a health care provider if you have symptoms of a viral illness that do not go away. This information is not intended to replace advice given to you by your health care provider. Make sure you discuss any questions you have with your health care provider. Document Revised: 09/18/2020 Document Reviewed: 03/14/2020 [employer] Patient Education ?? 2021 [employer]. Follow Up Care 07/15/2022 06:51:11 With:Follow up with primary care provider Address: [address] [place] [address] When:1 to 2 weeks Comments:Dr. Karely Wright July??16 at 10:00 Discharge instructions * Marge Callaway: PERFORM Event Display: Discharge Instructions Authored Date: [id number] BAMBI MCGRAW :2000 Age:21 years Sex:Female Visit Date:07/15/2022 Hospital Discharge Instructions We would like to thank you for allowing us to assist you with your healthcare needs. The following includes patient education materials and information regarding your injury/illness. After you leave the hospital, you may get your health information including your test results, physician notes and discharge information by accessing your Patient Portal. Your Next Steps Follow Up Appointments Follow Up with??Follow up with primary care provider When:??Within 1 to 2 weeks Why: Dr. Karely Wright July??16 at 10:00 Where: [address] [place] [address] The Following Equipment Has Been Ordered for You Home Equipment - Hospital bed, Mechanical lift, Nebulizer, Pulse oximeter, Suction unit, Wheelchair Home Equipment, Anticipated - Other: Patient has all the ADL equipment needed for her disability The Following Treatments Have Been Arranged for You Current Home Treatments - Nebulizer treatments, Tube feeding Medications What How Much When Why Instructions Next Dose New azithromycin (azithromycin 250 mg oral tablet) 1 tab Oral (given by mouth) Every day Pneumonia Cerebral palsy Duration: 2 Days New cefpodoxime (cefpodoxime 200 mg oral tablet) 1 tab Oral (given by mouth) Every 12 hours Duration: 4 Days Changed guaiFENesin (Robafen 200 mg/ 10 mL oral liquid) 15 Milliliters Oral (given by mouth) 3 times a day DIRECTED WITH TUBE FEEDINGS ?? Unchanged albuterol (Albuterol (Eqv-ProAir HFA) 90 mcg/ inh inhalation aerosol) 2 Puffs Inhale (breathe in) Every 4 hours as needed for as needed for wheezing Unchanged baclofen (baclofen 10 mg oral tablet) 1 tab Oral (given by mouth) 3 times a day Unchanged fluticasone (Flovent HFA 110 mcg/ inh inhalation aerosol) 2 Puffs Inhale (breathe in) 2 times a day Unchanged ipratropium-albuterol (!-DuoNeb 0.5 mg-2.5 mg/ 3 mL inhalation solution) 3 Milliliters Nebulized inhalation (inhale using nebulizer) 4 times a day as needed for as needed for shortness of breath or wheezing Unchanged iron dextran (iron dextran 50 mg/ mL injectable solution) 250 Milligrams Nasogastric Tube Every day 5 mls daily ?? Unchanged medroxyPROGESTERone (Depo-Provera Contraceptive 150 mg/ mL intramuscular suspension) 1 Milliliters Intramuscular (in a muscle) Every 3 months Unchanged melatonin (melatonin 3 mg oral tablet) 1 tab Oral (given by mouth) Every night at bedtime as needed for as needed for insomnia Unchanged nystatin topical (Nyamyc 100,000 units/ g topical powder) 1 Application Topical (on the skin) 2 times a day Unchanged polyethylene glycol 3350 ([id number] oral powder for reconstitution) 17 Gram Oral (given by mouth) Every day as needed for constipation Unchanged scopolamine (scopolamine 1 mg/ 72 hr transdermal film, extended release) 1 Film Topical (on the skin) Every 48 hours Unchanged triamcinolone topical (triamcinolone 0.1% topical cream) 1 Application Topical (on the skin) 2 times a day Duration: 14 Days Your Summary Your Care Team Admitting Physician - Zac Kiser MD Attending Physician - Zac Kiser MD Your Diagnosis Viral illness Pneumonia Cerebral palsy Urinary tract infection Fluid depletion Problems Ongoing - Any problem that you are currently receiving treatment for. Cerebral palsy Tests Performed/Pending .Manual Differential (LTTL) BMP CBC w/ Diff Comprehensive Metabolic Panel Lactic Acid Procalcitonin Respiratory Panel 2.1 ([employer]) SARS-CoV-2 (Covid-19) AG (Chanda) POCT Urinalysis Microscopic Urinalysis with Micro if Indicated and Culture if Indicated XR Chest 1 View Discharge Vitals Temperature??(Axillary) 97.2 ??F (36.2 ??C) Heart Rate??(Peripheral) 100 Respiratory Rate?? 20 Blood Pressure?? 118/88?? Allergies Augmentin??(Unknown) Education Materials Viral Illness, Adult Viruses are tiny germs that can get into a person's body and cause illness. There are many different types of viruses, and they cause many types of illness. Viral illnesses can range from mild to severe. They can affect various parts of the body. Short-term conditions that are caused by a virus include colds and the flu (influenza). Long-term conditions that are caused by a virus include herpes, shingles, and HIV (human immunodeficiency virus) infection. A few viruses have been linked to certain cancers. What are the causes? Many types of viruses can cause illness. Viruses invade cells in your body, multiply, and cause theinfected cells to work abnormally or . When these cells , they release more of the virus. When this happens, you develop symptoms of the illness, and the virus continues to spread to other cells. If the virus takes over the function of the cell, it can cause the cell to divide and grow out ofcontrol. This happens when a virus causes cancer. Different viruses get into the body in different ways. You can get a virus by: ? Swallowing food or water that has come in contact with the virus (is contaminated). ? Breathing in droplets that have been coughed or sneezed into the air by an infected person. ? Touching a surface that has been contaminated with the virus and then touching your eyes, nose, or mouth. ? Being bitten by an insect or animal that carries the virus. ? Having sexual contact with a person who is infected with the virus. ? Being exposed to blood or fluids that contain the virus, either through an open cut or during a transfusion. If a virus enters your body, your body's defense system (immune system) will try to fight the virus. You may be at higher risk for a viral illness if your immune system is weak. What are the signs or symptoms? You may have these symptoms, depending on the type of virus and the location of the cells that it invades: ? Cold and flu viruses: ? Fever. ? Headache. ? Sore throat. ? Muscle aches. ? Stuffy nose (nasal congestion). ? Cough. ? Digestive system (gastrointestinal) viruses: ? Fever. ? Pain in the abdomen. ? Nausea. ? Diarrhea. ? Liver viruses (hepatitis): ? Loss of appetite. ? Tiredness. ? Skin or the white parts of your eyes turning yellow (jaundice). ? Brain and spinal cord viruses: ? Fever. ? Headache. ? Stiff neck. ? Nausea and vomiting. ? Confusion or sleepiness. ? Skin viruses: ? Warts. ? Itching. ? Rash. ? Sexually transmitted viruses: ? Discharge. ? Swelling. ? Redness. ? Rash. How is this diagnosed? This condition may be diagnosed based on one or more of the following: ? Symptoms. ? Medical history. ? Physical exam. ? Blood test, sample of mucus from your lungs (sputum sample), stool sample, or a swab of body fluidsor a skin sore (lesion). How is this treated? Viruses can be hard to treat because they live within cells. Antibiotic medicines do not treat viruses because these medicines do not get inside cells. Treatment for a viral illness may include: ? Resting and drinking plenty of fluids. ? Medicines to relieve symptoms. These can include ggae-oua-oqqrlpg medicine for pain and fever, medicines for cough or congestion, and medicines to relieve diarrhea. ? Antiviral medicines. These medicines are available only for certain types of viruses. Some viral illnesses can be prevented with vaccinations. A common example is the flu shot. Follow these instructions at home: Medicines ? Take urxl-lot-bonumin and prescription medicines only as told by your health care provider. ? If you were prescribed an antiviral medicine, take it as told by your health care provider. Do not stop taking the antiviral even if you start to feel better. ? Be aware of when antibiotics are needed and when they are not needed. Antibiotics do not treat viruses. You may get an antibiotic if your health care provider thinks that you may have, or are at riskfor, a bacterial infection and you have a viral infection. ? Do not ask for an antibiotic prescription if you have been diagnosed with a viral illness. Antibiotics will not make your illness go away faster. ? Frequently taking antibiotics when they are not needed can lead to antibiotic resistance. When thisdevelops, the medicine no longer works against the bacteria that it normally fights. General instructions ? Drink enough fluids to keep your urine pale yellow. ? Rest as much as possible. ? Return to your normal activities as told by your health care provider. Ask your health care provider what activities are safe for you. ? Keep all follow-up visits as told by your health care provider. This is important. How is this prevented? To reduce your risk of viral illness: ? Wash your hands often with soap and water for at least 20 seconds. If soap and water are not available, use hand physiology teacher. ? Avoid touching your nose, eyes, and mouth, especially if you have not washed your hands recently. ? If anyone in your household has a viral infection, clean all household surfaces that may have been in contact with the virus. Use soap and hot water. You may also use bleach that you have added waterto (diluted). ? Stay away from people who are sick with symptoms of a viral infection. ? Do not share items such as toothbrushes and water bottles with other people. ? Keep your vaccinations up to date. This includes getting a yearly flu shot. ? Eat a healthy diet and get plenty of rest. Contact a health care provider if: ? You have symptoms of a viral illness that do not go away. ? Your symptoms come back after going away. ? Your symptoms get worse. Get help right away if you have: ? Trouble breathing. ? A severe headache or a stiff neck. ? Severe vomiting or pain in your abdomen. These symptoms may represent a serious problem that is an emergency. Do not wait to see if the symptoms will go away. Get medical help right away. Call your local emergency services (911 in the [place] Do not drive yourself to the hospital. Summary ? Viruses are types of germs that can get into a person's body and cause illness. Viral illnesses canrange from mild to severe. They can affect various parts of the body. ? Viruses can be hard to treat. There are medicines to relieve symptoms, and there are some antiviralmedicines. ? If you were prescribed an antiviral medicine, take it as told by your health care provider. Do not stop taking the antiviral even if you start to feel better. ? Contact a health care provider if you have symptoms of a viral illness that do not go away. This information is not intended to replace advice given to you by your health care provider. Make sure you discuss any questions you have with your health care provider. Document Revised: 09/18/2020 Document Reviewed: 03/14/2020 [employer] Patient Education ?? 2021 [employer]. Medication Information cefpodoxime?? (SEF renuka DOX eem) ?What is the most important information I should know about cefpodoxime?You should not use cefpodoxime if you have ever had a severe allergic reaction to any type of cephalosporin antibiotic (Omnicef, Keflex, and others). ?What is cefpodoxime?Cefpodoxime is a cephalosporin (SEF a low spor in) antibiotic that is used to treat infections caused by bacteria. This includes infections of the sinus, throat, ear, skin, bladder, or lungs. ?Cefpodoxime is also used to treat gonorrhea. ?Cefpodoxime may also be used for purposes not listed in this medication guide. ?What should I discuss with my healthcare provider before taking cefpodoxime?You should not take this medicine if you are allergic to cefpodoxime or any other cephalosporinantibiotic (cefdinir, cefalexin, Keflex, Omnicef, and others). ?Tell your doctor if you have ever had: ?kidney disease; ?urination problems; ?a stomach or intestinal disorder such as colitis; or ?an allergy to any type of penicillin. ?Tell your doctor if you are . ?You should not breastfeed while using cefpodoxime. ?Cefpodoxime is not approved for use by anyone younger than 2 months old.?How should I take cefpodoxime?Follow all directions on your prescription label and read all medication guides or instruction sheets. ??Use the medicine exactly as directed. ?Take a cefpodoxime??tablet??with food. ?You may take cefpodoxime??oral suspension (liquid)??with or without food. ?Shake the??liquid??before you measure a dose. Use the dosing syringe provided, or use a medicine dose-measuring device (not a kitchen spoon). ?Use this medicine for the full prescribed length of time, even if your symptoms quickly improve. Skipping doses can increase your risk of infection resistant to medication. ??Cefpodoxime will nottreat a viral infection (flu or common cold). ?This medicine can affect the results of certain medical tests. ??Tell any doctor who treats youthat you are using cefpodoxime. ?Store the??tablets??at room temperature away from moisture and heat. ?Store the??liquid??in a tightly-closed bottle in the refrigerator. Do not freeze. Throw away any unused liquid after 14 days. ?What happens if I miss a dose?Take the medicine as soon as you can, but skip the missed dose if it is almost time for your next dose.??Do not??take two doses at one time.?What happens if I overdose?Seek emergency medical attention or call the [facility] Help line at . ?Overdose symptoms may include nausea, vomiting, stomach pain, and diarrhea. ?What should I avoid while taking cefpodoxime?Antibiotic medicines can cause diarrhea, which may be a sign of a new infection. ??If you have diarrhea that is watery or bloody, call your doctor before using anti-diarrhea medicine.?What are the possible side effects of cefpodoxime?Get emergency medical help if you have??signs of an allergic reaction??(hives, difficult breathing, swelling in your face or throat)??or a severe skin reaction??(fever, sore throat, burning in your eyes, skin pain, red or purple skin rash that spreads and causes blistering and peeling). ?Call your doctor at once if you have: ?severe stomach pain, diarrhea that is watery or bloody (even if it occurs months after yourlast dose); ?fever, chills, sore throat, mouth sores, swollen glands, joint pain, or not feeling well; ?a seizure; or ?liver problems--upper stomach pain, loss of appetite, dark urine, gregory- colored stools, jaundice (yellowing of the skin or eyes). ?Common side effects may include: ?diarrhea; ?nausea, stomach pain; ?headache;?vaginal itching or discharge; or ?diaper rash in an infant using this medicine. ?This is not a complete list of side effects and others may occur. Call your doctor for medical advice about side effects. You may report side effects to FDA at 2-672-WLI-0968. ?What other drugs will affect cefpodoxime?Cefpodoxime can harm your kidneys,??especially if you also use certain medicines for infections, cancer, osteoporosis, organ transplant rejection, bowel disorders, high blood pressure, or pain orarthritis (including Advil, Motrin, and Aleve). ?Tell your doctor about all your other medicines, especially: ?probenecid; ?an antacid; or ?a stomach acid data center solutions architect (Pepcid, Tagamet, and others). ?This list is not complete. ??Other drugs may affect cefpodoxime, including prescription and gbiu-mit-ftdjgvq medicines, vitamins, and herbal products. ??Not all possible drug interactions are listed here. ?Where can I get more information?Your pharmacist can provide more information about cefpodoxime. ?Remember, keep this and all other medicines out of the reach of children, never share your medicines with others, and use this medication only for the indication prescribed. ?Every effort has been made to ensure that the information provided by [employer]. ('[employer]') is accurate, up-to-date, and complete, but no guarantee is made to that effect. Drug information contained herein may be time sensitive. [employer] information has been compiled for use by healthcare practitioners and consumers in the [place] and therefore [employer] does not warrant that uses outside of the [place] are appropriate, unless specifically indicated otherwise. [employer] drug information does not endorse drugs, diagnose patients or recommend therapy. [employer] drug information is an informational resource designed to assist licensed healthcare practitioners in caring for their patients and/or to serve consumers viewing this service as a supplement to, and not a substitutefor, the expertise, skill, knowledge and judgment of healthcare practitioners. The absence of a warning for a given drug or drug combination in no way should be construed to indicate that the drug ordrug combination is safe, effective or appropriate for any given patient. [employer] does not assume any responsibility for any aspect of healthcare administered with the aid of information [employer] provides. The information contained herein is not intended to cover all possible uses, directions, precautions, warnings, drug interactions, allergic reactions, or adverse effects. If you have questions about the drugs you are taking, check with your doctor, nurse or pharmacist.? Copyright 2795-9890 [employer]. Version: 7.. Revision Date: 09/13/2020. ?? lactobacillus acidophilus?? (LAK toe ba MONICA us mary alice OFF il us) ?? Acidophilus, Bacid (LAC), Florajen, Farheen-Q, Lactinex, Laura-Bid, RisaQuad, Superdophilus?What is the most important information I should know about lactobacillus acidophilus?Follow all directions on the product label and package. Tell each of your healthcare providers about all your medical conditions, allergies, and all medicines you use. ?What is lactobacillus acidophilus?Lactobacillus acidophilus is a bacteria that exists naturally in the body, primarily in the intestines and the vagina. ??Lactobacillus acidophilus has been used as a probiotic, or 'friendly bacteria.' ?Lactobacillus acidophilus has been used in alternative medicine as a??likely effective??aid in treating diarrhea in children with rotavirus. ?Lactobacillus acidophilus has been used in alternative medicine as a??possibly effective??aid (in children or adults) in preventing diarrhea caused by antibiotics, travel, chemotherapy, or hospitalization. ??Lactobacillus acidophilus is also possibly effective in treating irritable bowel syndrome, bacterial vaginal infection, colic in babies, lung infections in children, skin problems in children who are allergic to milk, and other conditions. ?Lactobacillus acidophilus has also been used to treat lactose intolerance, Crohn's disease, overgrowth of bacteria in the intestines, or vaginal yeast infections caused by antibiotics. ??However,research has shown that lactobacillus acidophilus??may not be effective??in treating these conditions. ?Other uses??not proven with research??have included treating indigestion, urinary tract infections, intestinal problems in premature babies, high cholesterol, lyme disease, cold sores, acne, cancer, the common cold, and other conditions. ?It is not certain whether lactobacillus acidophilus is effective in treating any medical condition. ??Medicinal use of this product has not been approved by the FDA. ??Lactobacillus acidophilus should not be used in place of medication prescribed for you by your doctor. ?Lactobacillus acidophilus is often sold as an herbal supplement. ??There are no regulated manufacturing standards in place for many herbal compounds and some marketed supplements have been found to be contaminated with toxic metals or other drugs. Herbal/health supplements should be purchased from a reliable source to minimize the risk of contamination. ?Lactobacillus acidophilus may also be used for other purposes not listed in this product guide. ?What should I discuss with my healthcare provider before taking lactobacillus acidophilus?Ask a doctor, pharmacist, or other healthcare provider if it is safe for you to use this product if you have: ?short bowel syndrome; or ?a weak immune system (caused by disease or by using certain medicine). ?Ask a doctor before using this product if you are or breast-feeding.?Do not give any herbal/health supplement to a child without medical advice. ?How should I take lactobacillus acidophilus?When considering the use of herbal supplements, seek the advice of your doctor. ??You may also consider consulting a practitioner who is trained in the use of herbal/health supplements. ?If you choose to use lactobacillus acidophilus, use it as directed on the package or as directed by your doctor, pharmacist, or other healthcare provider. ??Do not use more of this product than is recommended on the label. ?Lactobacillus acidophilus is available in capsule and tablet form, or as a vaginal suppository.??Powder or liquid forms may also be available. ??Some dairy products, especially yogurt, also contain lactobacillus acidophilus. ?The??chewable tablet??must be chewed before you swallow it. ?Do not use different forms of lactobacillus acidophilus at the same time without medical advice. Using different formulations together increases the risk of an overdose. ?Call your doctor if the condition you are treating with lactobacillus acidophilus does not improve, or if it gets worse while using this product. ?Store lactobacillus acidophilus in a sealed container as directed on the product label, away from moisture, heat, and light. ?What happens if I miss a dose?Skip the missed dose if it is almost time for your next scheduled dose. ??Do not??use extra lactobacillus acidophilus to make up the missed dose. ?What happens if I overdose?Seek emergency medical attention or call the Poison Help line at . ?What should I avoid while taking lactobacillus acidophilus?Avoid taking lactobacillus acidophilus within 2 hours after you take any type of antibiotic medicine. ?What are the possible side effects of lactobacillus acidophilus?Get emergency medical help if you have??signs of an allergic reaction:?hives; difficulty breathing; swelling of your face, lips, tongue, or throat. ?Although not all side effects are known, lactobacillus acidophilus is thought to be likely safewhen taken for a short period of time. ?Common side effects may include: ?bloating; or ?gas. ?This is not a complete list of side effects and others may occur. Call your doctor for medical advice about side effects. You may report side effects to FDA at 9-095-ECZ-8985. ?What other drugs will affect lactobacillus acidophilus?Do not take lactobacillus acidophilus without medical advice if you are using any medications that can weaken your immune system, such as:?medicine to prevent organ transplant rejection; or ?steroid medicine (prednisone, dexamethasone, methylprednisolone, and others). ?This list is not complete. ??Other drugs may interact with lactobacillus acidophilus, includingprescription and daju-xrh-xcmhxly medicines, vitamins, and herbal products. ??Not all possible interactions are listed in this product guide. ?Where can I get more information?Consult with a licensed healthcare professional before using any herbal/health supplement. ??Whether you are treated by a medical doctor or a practitioner trained in the use of natural medicines/supplements,??make sure all your healthcare providers know about all of your medical conditions and t reatments. ?Remember, keep this and all other medicines out of the reach of children, never share your medicines with others, and use this medication only for the indication prescribed. ?Every effort has been made to ensure that the information provided by [employer]. ('[employer]') is accurate, up-to-date, and complete, but no guarantee is made to that effect. Drug information contained herein may be time sensitive. [employer] information has been compiled for use by healthcare practitioners and consumers in the [place] and therefore [employer] does not warrant that uses outside of the [place] are appropriate, unless specifically indicated otherwise. [employer] drug information does not endorse drugs, diagnose patients or recommend therapy. [employer] drug information is an informational resource designed to assist licensed healthcare practitioners in caring for their patients and/or to serve consumers viewing this service as a supplement to, and not a substitutefor, the expertise, skill, knowledge and judgment of healthcare practitioners. The absence of a warning for a given drug or drug combination in no way should be construed to indicate that the drug ordrug combination is safe, effective or appropriate for any given patient. [employer] does not assume any responsibility for any aspect of healthcare administered with the aid of information [employer] provides. The information contained herein is not intended to cover all possible uses, directions, precautions, warnings, drug interactions, allergic reactions, or adverse effects. If you have questions about the drugs you are taking, check with your doctor, nurse or pharmacist.? Copyright 7300-7937 [employer]. Version: 3.07. Revision Date: 10/25/2016. ?? azithromycin (oral/injection)?? (a CECIL MCKEON sin) ?? Azithromycin 3 Day Dose Pack, Azithromycin 5 Day Dose Pack, Zithromax, Zithromax IV, Zithromax TRI-POOJA, Zithromax Z-Pooja?What is the most important information I should know about azithromycin?You should not use azithromycin if you have ever had an allergic reaction, jaundice, or liver problems while taking this medicine. ??You should not use azithromycin if you have ever had a severe allergic reaction to similar drugs such as clarithromycin, erythromycin, or telithromycin. ?What is azithromycin?Azithromycin is used to treat many different types of infections caused by bacteria, including infections of the lungs, sinus, throat, tonsils, skin, urinary tract, cervix, or genitals. ?Azithromycin may also be used for purposes not listed in this medication guide. ?What should I discuss with my healthcare provider before using azithromycin?You should not use azithromycin if you are allergic to it, or if you have ever had: ?jaundice or liver problems caused by taking azithromycin; or ?a severe allergic reaction to similar drugs such as clarithromycin, erythromycin, or telithromycin. ?Azithromycin oral??should not be used to treat pneumonia??in people who have: ?cystic fibrosis; ?an infection after being in a hospital; ?an infection in the blood;?a weak immune system (caused by diseases such as HIV/AIDS or cancer); or ?in older adults and those who are ill or debilitated. ?Tell your doctor if you have ever had: ?pneumonia; ?liver or kidney disease; ?myasthenia gravis; ?low levels of potassium in your blood; ?a heart rhythm disorder; or ?long QT syndrome (in you or a family member). ?It is??not known??whether this medicine is effective in treating genital ulcers in women. ?Tell your doctor if you are or . ??Taking azithromycin while may cause diarrhea, vomiting, or rash in the nursing baby. ?Azithromycin is not approved for use by anyone younger than 6 months old. ??Azithromycin shouldnot be used to treat a throat or tonsil infection in a child younger than 2 years old. ?How should I take azithromycin?Follow all directions on your prescription label and read all medication guides or instruction sheets. ??Use the medicine exactly as directed. ?Azithromycin??oral??is taken by mouth. ??Azithromycin??injection??is given as an infusion into a vein, usually for 2 days before you switch to azithromycin??oral. ??A healthcare provider will give you this injection. ?You may take azithromycin??oral??with or without food. ?Shake the??oral suspension??(liquid) before you measure a dose. Use the dosing syringe provided, or use a medicine dose-measuring device (not a kitchen spoon). ?Use this medicine for the full prescribed length of time, even if your symptoms quickly improve. ??Skipping doses can increase your risk of infection that is resistant to medication. ??Azithromycin will not treat a viral infection such as the flu or a common cold. ?Store at room temperature away from moisture and heat. Throw away any unused??liquid??medicine after 10 days. ?What happens if I miss a dose?Take the medicine as soon as you can, but skip the missed dose if it is almost time for your next dose.??Do not??take two doses at one time.?What happens if I overdose?Seek emergency medical attention or call the Poison Help line at . ?What should I avoid while taking azithromycin?Antibiotic medicines can cause diarrhea, which may be a sign of a new infection. ??If you have diarrhea that is watery or bloody, call your doctor before using anti-diarrhea medicine.?Azithromycin could make you sunburn more easily. ??Avoid sunlight or tanning beds. Wear protective clothing and use sunscreen (SPF 30 or higher) when you are outdoors. ?What are the possible side effects of azithromycin?Get emergency medical help if you have??signs of an allergic reaction??(hives, difficult breathing, swelling in your face or throat)??or a severe skin reaction??(fever, sore throat, burning in your eyes, skin pain, red or purple skin rash that spreads and causes blistering and peeling). ?Seek medical treatment if you have a serious drug reaction that can affect many parts of your body.?Symptoms may include: ??skin rash, fever, swollen glands, muscle aches, severe weakness, unusual bruising, or yellowing of your skin or eyes. ?Call your doctor at once if you have: ?severe stomach pain, diarrhea that is watery or bloody; ?fast or pounding heartbeats, fluttering in your chest, shortness of breath, and sudden dizziness (like you might pass out); or ?liver problems--nausea, vomiting, loss of appetite, stomach pain (upper right side), tiredness, itching, dark urine, gregory-colored stools, jaundice (yellowing of the skin or eyes); ?Call your doctor right away if a baby taking azithromycin becomes irritable or vomits while eating or nursing. ?Older adults may be more likely to have side effects on heart rhythm, including a life-threatening fast heart rate. ?Common side effects may include: ?nausea, vomiting; or ?stomach pain. ?This is not a complete list of side effects and others may occur. Call your doctor for medical advice about side effects. You may report side effects to FDA at 8-326-YYW-4090. ?What other drugs will affect azithromycin?Tell your doctor about all your other medicines, especially: ?colchicine; ?digoxin; ?nelfinavir;?phenytoin;?an antacid that contains aluminum or magnesium--Acid Gone, Gaviscon, Gelusil, Maalox, Milk of Magnesia, Mylanta, Pepcid Complete, Rolaids, Rulox, and others; or ?a blood thinner--warfarin, Coumadin, Jantoven. ?This list is not complete. ??Other drugs may affect azithromycin, including prescription and gmsm-ktb-mentpaf medicines, vitamins, and herbal products. ??Not all possible drug interactions are listed here. ?Where can I get more information?Your pharmacist can provide more information about azithromycin. ?Remember, keep this and all other medicines out of the reach of children, never share your medicines with others, and use this medication only for the indication prescribed. ?Every effort has been made to ensure that the information provided by [employer]. [employer]') is accurate, up-to-date, and complete, but no guarantee is made to that effect. Drug information contained herein may be time sensitive. [employer] information has been compiled for use by healthcare practitioners and consumers in the [place] and therefore [employer] does not warrant that uses outside of the [place] are appropriate, unless specifically indicated otherwise. [facility]'s drug information does not endorse drugs, diagnose patients or recommend therapy. [facility]'s drug information is an informational resource designed to assist licensed healthcare practitioners in caring for their patients and/or to serve consumers viewing this service as a supplement to, and not a substitutefor, the expertise, skill, knowledge and judgment of healthcare practitioners. The absence of a warning for a given drug or drug combination in no way should be construed to indicate that the drug ordrug combination is safe, effective or appropriate for any given patient. [facility] does not assume any responsibility for any aspect of healthcare administered with the aid of information [facility] provides. The information contained herein is not intended to cover all possible uses, directions, precautions, warnings, drug interactions, allergic reactions, or adverse effects. If you have questions about the drugs you are taking, check with your doctor, nurse or pharmacist.? Copyright [id number] [facility], [employer]. Version: 18.. Revision Date: 09/17/2018. ? Patient Name:BAMBI MCGRAW I have received this information and my questions have been answered. Patient/Housing And Residence Life Director Name: Patient/Housing And Residence Life Director Signature: Relationship to Patient: Witness Name/Signature: Date: Electronically Signed on: 07/18/2022 11:46 ESTSigned by:Adela Reese: PERFORM Event Display: Discharge Instructions Authored Date: [id number] LUCIEN, BAMBI Ivan :2000 Age:21 years Sex:Female Visit Date:07/15/2022 Hospital Discharge Instructions We would like to thank you for allowing us to assist you with your healthcare needs. The following includes patient education materials and information regarding your injury/illness. After you leave the hospital, you may get your health information including your test results, physician notes and discharge information by accessing your Patient Portal. Your Next Steps Instructions From Your Care Team Dr. Karely Wright July??16 at 10:00 Follow Up Appointments Follow Up with??Follow up with primary care provider When:??Within 1 to 2 weeks Where: [address] [place] [address] The Following Equipment Has Been Ordered for You Home Equipment - Hospital bed, Mechanical lift, Nebulizer, Pulse oximeter, Suction unit, Wheelchair The Following Treatments Have Been Arranged for You Current Home Treatments - Nebulizer treatments, Tube feeding Medications What How Much When Why Instructions Next Dose New azithromycin (azithromycin 250 mg oral tablet) 1 tab Oral (given by mouth) Every day Pneumonia Cerebral palsy Duration: 2 Days New cefpodoxime (cefpodoxime 200 mg oral tablet) 1 tab Oral (given by mouth) Every 12 hours Duration: 4 Days Changed guaiFENesin (Robafen 200 mg/ 10 mL oral liquid) 15 Milliliters Oral (given by mouth) 3 times a day DIRECTED WITH TUBE FEEDINGS ?? Unchanged albuterol (Albuterol (Eqv-ProAir HFA) 90 mcg/ inh inhalation aerosol) 2 Puffs Inhale (breathe in) Every 4 hours as needed for as needed for wheezing Unchanged baclofen (baclofen 10 mg oral tablet) 1 tab Oral (given by mouth) 3 times a day Unchanged fluticasone (Flovent HFA 110 mcg/ inh inhalation aerosol) 2 Puffs Inhale (breathe in) 2 times a day Unchanged ipratropium-albuterol (!-DuoNeb 0.5 mg-2.5 mg/ 3 mL inhalation solution) 3 Milliliters Nebulized inhalation (inhale using nebulizer) 4 times a day as needed for as needed for shortness of breath or wheezing Unchanged iron dextran (iron dextran 50 mg/ mL injectable solution) 250 Milligrams Nasogastric Tube Every day 5 mls daily ?? Unchanged medroxyPROGESTERone (Depo-Provera Contraceptive 150 mg/ mL intramuscular suspension) 1 Milliliters Intramuscular (in a muscle) Every 3 months Unchanged melatonin (melatonin 3 mg oral tablet) 1 tab Oral (given by mouth) Every night at bedtime as needed for as needed for insomnia Unchanged nystatin topical (Nyamyc 100,000 units/ g topical powder) 1 Application Topical (on the skin) 2 times a day Unchanged polyethylene glycol 3350 (NHI2907 oral powder for reconstitution) 17 Gram Oral (given by mouth) Every day as needed for constipation Unchanged scopolamine (scopolamine 1 mg/ 72 hr transdermal film, extended release) 1 Film Topical (on the skin) Every 48 hours Unchanged triamcinolone topical (triamcinolone 0.1% topical cream) 1 Application Topical (on the skin) 2 times a day Duration: 14 Days Your Summary Your Care Team Admitting Physician - Zac Kiser MD Attending Physician - Zac Kiser MD Your Diagnosis Viral illness Pneumonia Cerebral palsy Urinary tract infection Fluid depletion Problems Ongoing - Any problem that you are currently receiving treatment for. Cerebral palsy Tests Performed/Pending .Manual Differential (LTTL) BMP CBC w/ Diff Comprehensive Metabolic Panel Lactic Acid Procalcitonin Respiratory Panel 2.1 ([employer]) SARS-CoV-2 (Covid-19) AG (Chanda) POCT Urinalysis Microscopic Urinalysis with Micro if Indicated and Culture if Indicated XR Chest 1 View Discharge Vitals Temperature??(Axillary) 97.2 ??F (36.2 ??C) Heart Rate??(Peripheral) 100 Respiratory Rate?? 20 Blood Pressure?? 118/88?? Allergies Augmentin??(Unknown) Education Materials Viral Illness, Adult Viruses are tiny germs that can get into a person's body and cause illness. There are many different types of viruses, and they cause many types of illness. Viral illnesses can range from mild to severe. They can affect various parts of the body. Short-term conditions that are caused by a virus include colds and the flu (influenza). Long-term conditions that are caused by a virus include herpes, shingles, and HIV (human immunodeficiency virus) infection. A few viruses have been linked to certain cancers. What are the causes? Many types of viruses can cause illness. Viruses invade cells in your body, multiply, and cause theinfected cells to work abnormally or . When these cells , they release more of the virus. When this happens, you develop symptoms of the illness, and the virus continues to spread to other cells. If the virus takes over the function of the cell, it can cause the cell to divide and grow out ofcontrol. This happens when a virus causes cancer. Different viruses get into the body in different ways. You can get a virus by: ? Swallowing food or water that has come in contact with the virus (is contaminated). ? Breathing in droplets that have been coughed or sneezed into the air by an infected person. ? Touching a surface that has been contaminated with the virus and then touching your eyes, nose, or mouth. ? Being bitten by an insect or animal that carries the virus. ? Having sexual contact with a person who is infected with the virus. ? Being exposed to blood or fluids that contain the virus, either through an open cut or during a transfusion. If a virus enters your body, your body's defense system (immune system) will try to fight the virus. You may be at higher risk for a viral illness if your immune system is weak. What are the signs or symptoms? You may have these symptoms, depending on the type of virus and the location of the cells that it invades: ? Cold and flu viruses: ? Fever. ? Headache. ? Sore throat. ? Muscle aches. ? Stuffy nose (nasal congestion). ? Cough. ? Digestive system (gastrointestinal) viruses: ? Fever. ? Pain in the abdomen. ? Nausea. ? Diarrhea. ? Liver viruses (hepatitis): ? Loss of appetite. ? Tiredness. ? Skin or the white parts of your eyes turning yellow (jaundice). ? Brain and spinal cord viruses: ? Fever. ? Headache. ? Stiff neck. ? Nausea and vomiting. ? Confusion or sleepiness. ? Skin viruses: ? Warts. ? Itching. ? Rash. ? Sexually transmitted viruses: ? Discharge. ? Swelling. ? Redness. ? Rash. How is this diagnosed? This condition may be diagnosed based on one or more of the following: ? Symptoms. ? Medical history. ? Physical exam. ? Blood test, sample of mucus from your lungs (sputum sample), stool sample, or a swab of body fluidsor a skin sore (lesion). How is this treated? Viruses can be hard to treat because they live within cells. Antibiotic medicines do not treat viruses because these medicines do not get inside cells. Treatment for a viral illness may include: ? Resting and drinking plenty of fluids. ? Medicines to relieve symptoms. These can include apnz-gqa-zhblvrs medicine for pain and fever, medicines for cough or congestion, and medicines to relieve diarrhea. ? Antiviral medicines. These medicines are available only for certain types of viruses. Some viral illnesses can be prevented with vaccinations. A common example is the flu shot. Follow these instructions at home: Medicines ? Take ugao-raf-bocxjct and prescription medicines only as told by your health care provider. ? If you were prescribed an antiviral medicine, take it as told by your health care provider. Do not stop taking the antiviral even if you start to feel better. ? Be aware of when antibiotics are needed and when they are not needed. Antibiotics do not treat viruses. You may get an antibiotic if your health care provider thinks that you may have, or are at riskfor, a bacterial infection and you have a viral infection. ? Do not ask for an antibiotic prescription if you have been diagnosed with a viral illness. Antibiotics will not make your illness go away faster. ? Frequently taking antibiotics when they are not needed can lead to antibiotic resistance. When thisdevelops, the medicine no longer works against the bacteria that it normally fights. General instructions ? Drink enough fluids to keep your urine pale yellow. ? Rest as much as possible. ? Return to your normal activities as told by your health care provider. Ask your health care provider what activities are safe for you. ? Keep all follow-up visits as told by your health care provider. This is important. How is this prevented? To reduce your risk of viral illness: ? Wash your hands often with soap and water for at least 20 seconds. If soap and water are not available, use hand physiology teacher. ? Avoid touching your nose, eyes, and mouth, especially if you have not washed your hands recently. ? If anyone in your household has a viral infection, clean all household surfaces that may have been in contact with the virus. Use soap and hot water. You may also use bleach that you have added waterto (diluted). ? Stay away from people who are sick with symptoms of a viral infection. ? Do not share items such as toothbrushes and water bottles with other people. ? Keep your vaccinations up to date. This includes getting a yearly flu shot. ? Eat a healthy diet and get plenty of rest. Contact a health care provider if: ? You have symptoms of a viral illness that do not go away. ? Your symptoms come back after going away. ? Your symptoms get worse. Get help right away if you have: ? Trouble breathing. ? A severe headache or a stiff neck. ? Severe vomiting or pain in your abdomen. These symptoms may represent a serious problem that is an emergency. Do not wait to see if the symptoms will go away. Get medical help right away. Call your local emergency services (911 in the [place] Do not drive yourself to the hospital. Summary ? Viruses are types of germs that can get into a person's body and cause illness. Viral illnesses canrange from mild to severe. They can affect various parts of the body. ? Viruses can be hard to treat. There are medicines to relieve symptoms, and there are some antiviralmedicines. ? If you were prescribed an antiviral medicine, take it as told by your health care provider. Do not stop taking the antiviral even if you start to feel better. ? Contact a health care provider if you have symptoms of a viral illness that do not go away. This information is not intended to replace advice given to you by your health care provider. Make sure you discuss any questions you have with your health care provider. Document Revised: 09/18/2020 Document Reviewed: 03/14/2020 [employer] Patient Education ?? 2021 [employer]. Medication Information cefpodoxime?? (SEF renuka DOX eem) ?What is the most important information I should know about cefpodoxime?You should not use cefpodoxime if you have ever had a severe allergic reaction to any type of cephalosporin antibiotic (Omnicef, Keflex, and others). ?What is cefpodoxime?Cefpodoxime is a cephalosporin (SEF a low spor in) antibiotic that is used to treat infections caused by bacteria. This includes infections of the sinus, throat, ear, skin, bladder, or lungs. ?Cefpodoxime is also used to treat gonorrhea. ?Cefpodoxime may also be used for purposes not listed in this medication guide. ?What should I discuss with my healthcare provider before taking cefpodoxime?You should not take this medicine if you are allergic to cefpodoxime or any other cephalosporinantibiotic (cefdinir, cefalexin, Keflex, Omnicef, and others). ?Tell your doctor if you have ever had: ?kidney disease; ?urination problems; ?a stomach or intestinal disorder such as colitis; or ?an allergy to any type of penicillin. ?Tell your doctor if you are . ?You should not breastfeed while using cefpodoxime. ?Cefpodoxime is not approved for use by anyone younger than 2 months old.?How should I take cefpodoxime?Follow all directions on your prescription label and read all medication guides or instruction sheets. ??Use the medicine exactly as directed. ?Take a cefpodoxime??tablet??with food. ?You may take cefpodoxime??oral suspension (liquid)??with or without food. ?Shake the??liquid??before you measure a dose. Use the dosing syringe provided, or use a medicine dose-measuring device (not a kitchen spoon). ?Use this medicine for the full prescribed length of time, even if your symptoms quickly improve. Skipping doses can increase your risk of infection resistant to medication. ??Cefpodoxime will nottreat a viral infection (flu or common cold). ?This medicine can affect the results of certain medical tests. ??Tell any doctor who treats youthat you are using cefpodoxime. ?Store the??tablets??at room temperature away from moisture and heat. ?Store the??liquid??in a tightly-closed bottle in the refrigerator. Do not freeze. Throw away any unused liquid after 14 days. ?What happens if I miss a dose?Take the medicine as soon as you can, but skip the missed dose if it is almost time for your next dose.??Do not??take two doses at one time.?What happens if I overdose?Seek emergency medical attention or call the Poison Help line at . ?Overdose symptoms may include nausea, vomiting, stomach pain, and diarrhea. ?What should I avoid while taking cefpodoxime?Antibiotic medicines can cause diarrhea, which may be a sign of a new infection. ??If you have diarrhea that is watery or bloody, call your doctor before using anti-diarrhea medicine.?What are the possible side effects of cefpodoxime?Get emergency medical help if you have??signs of an allergic reaction??(hives, difficult breathing, swelling in your face or throat)??or a severe skin reaction??(fever, sore throat, burning in your eyes, skin pain, red or purple skin rash that spreads and causes blistering and peeling). ?Call your doctor at once if you have: ?severe stomach pain, diarrhea that is watery or bloody (even if it occurs months after yourlast dose); ?fever, chills, sore throat, mouth sores, swollen glands, joint pain, or not feeling well; ?a seizure; or ?liver problems--upper stomach pain, loss of appetite, dark urine, gregory- colored stools, jaundice (yellowing of the skin or eyes). ?Common side effects may include: ?diarrhea; ?nausea, stomach pain; ?headache;?vaginal itching or discharge; or ?diaper rash in an using this medicine. ?This is not a complete list of side effects and others may occur. Call your doctor for medical advice about side effects. You may report side effects to FDA at 4-901-RNY-1059. ?What other drugs will affect cefpodoxime?Cefpodoxime can harm your kidneys,??especially if you also use certain medicines for infections, cancer, osteoporosis, organ transplant rejection, bowel disorders, high blood pressure, or pain orarthritis (including Advil, Motrin, and Aleve). ?Tell your doctor about all your other medicines, especially: ?probenecid; ?an antacid; or ?a stomach acid data center solutions architect (Pepcid, Tagamet, and others). ?This list is not complete. ??Other drugs may affect cefpodoxime, including prescription and lxjn-jod-pwhcnlb medicines, vitamins, and herbal products. ??Not all possible drug interactions are listed here. ?Where can I get more information?Your pharmacist can provide more information about cefpodoxime. ?Remember, keep this and all other medicines out of the reach of children, never share your medicines with others, and use this medication only for the indication prescribed. ?Every effort has been made to ensure that the information provided by [employer]. [employer] is accurate, up-to-date, and complete, but no guarantee is made to that effect. Drug information contained herein may be time sensitive. [employer] information has been compiled for use by healthcare practitioners and consumers in the [place] and therefore [employer] does not warrant that uses outside of the [place] are appropriate, unless specifically indicated otherwise. [employer]'s drug information does not endorse drugs, diagnose patients or recommend therapy. [employer] drug information is an informational resource designed to assist licensed healthcare practitioners in caring for their patients and/or to serve consumers viewing this service as a supplement to, and not a substitutefor, the expertise, skill, knowledge and judgment of healthcare practitioners. The absence of a warning for a given drug or drug combination in no way should be construed to indicate that the drug ordrug combination is safe, effective or appropriate for any given patient. [employer] does not assume any responsibility for any aspect of healthcare administered with the aid of information [employer] provides. The information contained herein is not intended to cover all possible uses, directions, precautions, warnings, drug interactions, allergic reactions, or adverse effects. If you have questions about the drugs you are taking, check with your doctor, nurse or pharmacist.?Copyright 2865-2085 Lesley K[employer]. Version: 7.01. Revision Date: 09/13/2020. ? cefpodoxime?? (SEF renuka DOX eem) ?What is the most important information I should know about cefpodoxime?You should not use cefpodoxime if you have ever had a severe allergic reaction to any type of cephalosporin antibiotic (Omnicef, Keflex, and others). ?What is cefpodoxime?Cefpodoxime is a cephalosporin (SEF a low spor in) antibiotic that is used to treat infections caused by bacteria. This includes infections of the sinus, throat, ear, skin, bladder, or lungs. ?Cefpodoxime is also used to treat gonorrhea. ?Cefpodoxime may also be used for purposes not listed in this medication guide. ?What should I discuss with my healthcare provider before taking cefpodoxime?You should not take this medicine if you are allergic to cefpodoxime or any other cephalosporinantibiotic (cefdinir, cefalexin, Keflex, Omnicef, and others). ?Tell your doctor if you have ever had: ?kidney disease; ?urination problems; ?a stomach or intestinal disorder such as colitis; or ?an allergy to any type of penicillin. ?Tell your doctor if you are . ?You should not breastfeed while using cefpodoxime. ?Cefpodoxime is not approved for use by anyone younger than 2 months old.?How should I take cefpodoxime?Follow all directions on your prescription label and read all medication guides or instruction sheets. ??Use the medicine exactly as directed. ?Take a cefpodoxime??tablet??with food. ?You may take cefpodoxime??oral suspension (liquid)??with or without food. ?Shake the??liquid??before you measure a dose. Use the dosing syringe provided, or use a medicine dose-measuring device (not a kitchen spoon). ?Use this medicine for the full prescribed length of time, even if your symptoms quickly improve. Skipping doses can increase your risk of infection resistant to medication. ??Cefpodoxime will nottreat a viral infection (flu or common cold). ?This medicine can affect the results of certain medical tests. ??Tell any doctor who treats youthat you are using cefpodoxime. ?Store the??tablets??at room temperature away from moisture and heat. ?Store the??liquid??in a tightly-closed bottle in the refrigerator. Do not freeze. Throw away any unused liquid after 14 days. ?What happens if I miss a dose?Take the medicine as soon as you can, but skip the missed dose if it is almost time for your next dose.??Do not??take two doses at one time.?What happens if I overdose?Seek emergency medical attention or call the Poison Help line at . ?Overdose symptoms may include nausea, vomiting, stomach pain, and diarrhea. ?What should I avoid while taking cefpodoxime?Antibiotic medicines can cause diarrhea, which may be a sign of a new infection. ??If you have diarrhea that is watery or bloody, call your doctor before using anti-diarrhea medicine.?What are the possible side effects of cefpodoxime?Get emergency medical help if you have??signs of an allergic reaction??(hives, difficult breathing, swelling in your face or throat)??or a severe skin reaction??(fever, sore throat, burning in your eyes, skin pain, red or purple skin rash that spreads and causes blistering and peeling). ?Call your doctor at once if you have: ?severe stomach pain, diarrhea that is watery or bloody (even if it occurs months after yourlast dose); ?fever, chills, sore throat, mouth sores, swollen glands, joint pain, or not feeling well; ?a seizure; or ?liver problems--upper stomach pain, loss of appetite, dark urine, gregory- colored stools, jaundice (yellowing of the skin or eyes). ?Common side effects may include: ?diarrhea; ?nausea, stomach pain; ?headache;?vaginal itching or discharge; or ?diaper rash in an infant using this medicine. ?This is not a complete list of side effects and others may occur. Call your doctor for medical advice about side effects. You may report side effects to FDA at 7-578-BDQ-1310. ?What other drugs will affect cefpodoxime?Cefpodoxime can harm your kidneys,??especially if you also use certain medicines for infections, cancer, osteoporosis, organ transplant rejection, bowel disorders, high blood pressure, or pain orarthritis (including Advil, Motrin, and Aleve). ?Tell your doctor about all your other medicines, especially: ?probenecid; ?an antacid; or ?a stomach acid data center solutions architect (Pepcid, Tagamet, and others). ?This list is not complete. ??Other drugs may affect cefpodoxime, including prescription and [id number] medicines, vitamins, and herbal products. ??Not all possible drug interactions are listed here. ?Where can I get more information?Your pharmacist can provide more information about cefpodoxime. ?Remember, keep this and all other medicines out of the reach of children, never share your medicines with others, and use this medication only for the indication prescribed. ?Every effort has been made to ensure that the information provided by [employer]. [employer]') is accurate, up-to-date, and complete, but no guarantee is made to that effect. Drug information contained herein may be time sensitive. [employer] information has been compiled for use by healthcare practitioners and consumers in the [place] and therefore [employer] does not warrant that uses outside of the [place] are appropriate, unless specifically indicated otherwise. [employer] drug information does not endorse drugs, diagnose patients or recommend therapy. [employer] drug information is an informational resource designed to assist licensed healthcare practitioners in caring for their patients and/or to serve consumers viewing this service as a supplement to, and not a substitutefor, the expertise, skill, knowledge and judgment of healthcare practitioners. The absence of a warning for a given drug or drug combination in no way should be construed to indicate that the drug ordrug combination is safe, effective or appropriate for any given patient. [employer] does not assume any responsibility for any aspect of healthcare administered with the aid of information [employer] provides. The information contained herein is not intended to cover all possible uses, directions, precautions, warnings, drug interactions, allergic reactions, or adverse effects. If you have questions about the drugs you are taking, check with your doctor, nurse or pharmacist.?Copyright 4589-8420 [employer]. Version: 7.01. Revision Date: 09/13/2020. ? Patient Name:BAMBI MCGRAW I have received this information and my questions have been answered. Patient/Housing And Residence Life Director Name: Patient/Housing And Residence Life Director Signature: Relationship to Patient: Witness Name/Signature: Date: Electronically Signed on: 07/18/2022 11:35 ESTSigned by:DT * Event Display: Discharge Instructions Physician Emergency department Note * Jena Pastor MD: PERFORM Event Display: ED Note Physician Authored Date: [id number] BAMBI MCGRAW :2000 Age:21 years Sex:Female Visit Date:07/15/2022 History Of Present Illness: Patient is a 21-year-old??female??with a history of cerebral palsy who presents emergency department today for evaluation of fever and cough.?? Patient had symptoms for approximately 3 days and did develop some hypoxia last night??while sleeping. ??The patient was evaluated by Dr. De La Torre and signed out to me at time of shift change.?? The patient's lab work showed White blood cell count of 3.9 and hemoglobin of 9.6.?? Patient's CMP showed some mild hypokalemia at 3.4.?? Creatinine was normal.?? Patient's procalcitonin level is elevated at 7.37.?? Initial lactic acid is 3.4. ??Patient was received??Several liters of IV fluid and we will recheck the lactic acid. patient's respiratory panel showed positive for parainfluenza virus.?? Chest x-ray shows patchy infiltrate bilaterally suspicious for pneumonia.?? Patient had been given Levaquin by Dr. De La Torre.?? The plan is that patient will be admitted to the hospitalist service.?? She did have some hypotension and tachycardia.?? Oxygen saturation on room air currently is 95??but was reportedly in the low to mid 80s while sleeping last night. Medical Decision Making: Vitals & Measurements T:??37.9?C ??(Tympanic)?? HR:??128??(Peripheral)?? RR:??28?? BP:??83/58?? SpO2:??96%?? HT:??152.000??cm?? WT:??40.37??kg??(Estimated)?? O2 Therapy:??Room air?? Procedure No Qualifying Data Lab Results CBC and Differential?? LATEST RESULTS?? WBC?? 07/15/22 07:47?? 3.9 ??Low?? RBC?? 07/15/22 07:47?? 3.60 ??Low?? Hgb?? 07/15/22 07:47?? 9.6 ??Low?? Hct?? 07/15/22 07:47?? 30.3 ??Low?? MCV?? 07/15/22 07:47?? 84.2?? MCH?? 07/15/22 07:47?? 26.7 ??Low?? MCHC?? 07/15/22 07:47?? 31.7 ??Low?? RDW-CV?? 07/15/22 07:47?? 14.9 ??High?? Platelets?? 07/15/22 07:47?? 215?? MPV?? 07/15/22 07:47?? 11.2 ??High?? Segs Man?? 07/15/22 07:47?? 59?? Lymph Man?? 07/15/22 07:47?? 27.0?? [place] Man?? 07/15/22 07:47?? 6.0?? Eos Man?? 07/15/22 07:47?? 0.00?? Baso Man?? 07/15/22 07:47?? 0.0?? Band Man?? 07/15/22 07:47?? 7?? [place] Man?? 07/15/22 07:47?? 1?? Abs Neut Man?? 07/15/22 07:47?? 2.6?? Abs Lymph Man?? 07/15/22 07:47?? 1.1 ??Low?? Abs Stephens Man?? 07/15/22 07:47?? 0.2?? Abs Eos Man?? 07/15/22 07:47?? 0.0?? Abs Baso Man?? 07/15/22 07:47?? 0.0?? RBC Morph?? 07/15/22 07:47?? Normal?? Plt Estimation?? 07/15/22 07:47?? Normal? Routine Chemistry?? LATEST RESULTS?? Sodium Level?? 07/15/22 07:47?? 135?? Potassium Level?? 07/15/22 07:47?? 3.4 ??Low?? Chloride Level?? 07/15/22 07:47?? 98?? CO2?? 07/15/22 07:47?? 22?? Alk Phos?? 07/15/22 07:47?? 34 ??Low?? AST?? 07/15/22 07:47?? 35?? ALT?? 07/15/22 07:47?? 28?? BUN?? 07/15/22 07:47?? 9?? Glucose Level?? 07/15/22 07:47?? 105?? Creatinine Level?? 07/15/22 07:47?? 0.40 ??Low?? BUN/Creat Ratio?? 07/15/22 07:47?? 22.5 ??High?? Calcium Level?? 07/15/22 07:47?? 8.6 ??Low?? Protein Total?? 07/15/22 07:47?? 7.6?? Albumin Level?? 07/15/22 07:47?? 3.0 ??Low?? Globulin?? 07/15/22 07:47?? 4.6?? A/G Ratio?? 07/15/22 07:47?? 0.7?? Bilirubin Total?? 07/15/22 07:47?? 0.1 ??Low?? Anion Gap?? 07/15/22 07:47?? 15.0 ??High?? Lactic Acid Lvl?? 07/15/22 07:47?? 3.4 ??High?? Osmolality?? 07/15/22 07:47?? 269 ??Low?? eGFR CKD-EPI?? 07/15/22 07:47?? 143? Endocrinology?? LATEST RESULTS?? Procalcitonin?? 07/15/22 07:47?? 7.37 ??High? Infectious Disease?? LATEST RESULTS?? Adenovirus RespP-BFire?? 07/15/22 07:47?? Not Detected?? Bordetella parapertussis RespP-BFire?? 07/15/22 07:47?? Not Detected?? Bordetella pertussis RespP-BFire?? 07/15/22 07:47?? Not Detected?? Chlamydophila pneumoniae RespP-BFire?? 07/15/22 07:47?? Not Detected?? Coronavirus 229E (Not COVID-19) RP-BFire?? 07/15/22 07:47?? Not Detected?? Coronavirus HKU1 (Not COVID-19) RP-BFire?? 07/15/22 07:47?? Not Detected?? Coronavirus NL63 (Not COVID-19) RP-BFire?? 07/15/22 07:47?? Not Detected?? Coronavirus OC43 (Not COVID-19) RP-BFire?? 07/15/22 07:47?? Not Detected?? SARS-CoV-2 (COVID-19) RP-BFire?? 07/15/22 07:47?? Not Detected?? Human Metapneumonovirus RespP-BFire?? 07/15/22 07:47?? Not Detected?? Human Rhinovirus/Enterovirus RespP-BFir?? 07/15/22 07:47?? Not Detected?? Influenza A RespP-BFire?? 07/15/22 07:47?? Not Detected?? Influenza B RespP-BFire?? 07/15/22 07:47?? Not Detected?? Mycomplasma pneumoniae RespP-BFire?? 07/15/22 07:47?? Not Detected?? Parainfluenza Virus 1 RespP-BFire?? 07/15/22 07:47?? Not Detected?? Parainfluenza Virus 2 RespP-BFire?? 07/15/22 07:47?? Not Detected?? Parainfluenza Virus 3 RespP-BFire?? 07/15/22 07:47?? Detected Abnormal?? Parainfluenza Virus 4 RespP-BFire?? 07/15/22 07:47?? Not Detected?? Respiratory Syncytial Virus RespP-BFire?? 07/15/22 07:47?? Not Detected?? SARS-CoV or CoV-2 (COVID-19) Ag (Chanda)?? 07/15/22 06:58?? Negative?? Employed in healthcare??? 07/15/22 06:58?? Unknown?? Symptomatic as defined by CDC??? 07/15/22 06:58?? Unknown?? Date of onset (Lab)?? 07/15/22 06:58?? Unknown?? Hospitalized due to COVID-19??? 07/15/22 06:58?? Unknown?? In ICU??? 07/15/22 06:58?? Unknown?? Group care resident??? 07/15/22 06:58?? Unknown?? status??? 07/15/22 06:58?? Unknown? Diagnostic Results XR Chest 1 View 07/15/2022 08:21 EST XR Chest 1 View ?? 07/15/22 08:19:02 EXAM DESCRIPTION: XR Chest 1 View ?? 07/15/2022 ?? INDICATION: SEPSIS ?? COMPARISON: None ?? IMPRESSION: Patchy areas of infiltrate in the right mid-lower lung field and left lung base region suspicious for pneumonia ?? Normal cardiac size. Mild fullness in the right paratracheal region which may reflect mild adenopathy or vascular structures ?? No significant pleural effusion or pneumothorax. ? JOB #: [id number] Electronically Signed By: ?? Signed By: Bruce Clemens MD Assessment/Plan 1.??Cerebral palsy??G80.9 2.??Pneumonia??J18.9 Electronically Signed on 07/16/22 06:57 AM Jena Pastor MD * Tello De La Torre, DO: PERFORM, MODIFY Event Display: ED Note Physician Authored Date: [id number] BAMBI MCGRAW :2000 Age:21 years Sex:Female Visit Date:07/15/2022 Basic Information Time Seen: Tello De La Torre DO / 07/15/2022 06:54 Chief Complaint Patient's proider reports patient has a cough and fever x 3 days that progressed with hypoxia into the high 80's last night whille sleeping which improved when she got up. History Of Present Illness: This is a??very well cared for female patient PMH cerebral palsy, asthma??presents to the emergencydepartment with 2 of her caregivers due to concerns??of fever, cough, dyspnea??for the past 3 days.?? Last evening she had increased work of breathing with hypoxia in the??high 80s??while sleeping.??Her oxygenation improved??when she is awake.?? Due to persistent symptoms of the past 3 days her caregivers decided to bring her to the emergency department for investigation.?? No recent sick contact.?? Vaccinated for COVID/influenza.?? Patient is incontinent of urine??using briefs??and caregiversreport no??discolored urine or foul-smelling urine.?? No rashes or abscess.?? Patient is acting appropriately??at baseline. Review of Systems: CONSTITUTIONAL: _(+)ve fever, (+)ve generalized weakness/fatigue SKIN: _No rash, no itching, no jaundice EYES: _No visual loss, blurred vision, double vision or scleral icterus ENT: _No ear pain; patent nares without bleeding or congestion; no sore throat CARDIOLOGY: _No chest pain, No edema, No palpitations PULMONOLOGY: _No pleuritic chest pain, (+)ve dyspnea,??(+)ve cough, No hemoptysis ABDOMEN:_no nausea, no vomiting, no abdominal pain, no melena, no hematochezia :_no dysuria, no urinary frequency, no urinary urgency NEURO:_(+)ve cerebral palsy ?? REST OF REVIEW OF SYSTEMS IS NEGATIVE PERTAINS TO CHIEF COMPLAINT Physical Exam Vitals & Measurements T:??37.9?C ??(Tympanic)?? HR:??128??(Peripheral)?? RR:??28?? BP:??83/58?? SpO2:??96%?? HT:??152.000??cm?? WT:??40.37??kg??(Estimated)?? O2 Therapy:??Room air?? GENERAL: This is an??interactive cerebral palsy patient's??on her??electric wheelchair??in no significant cardiopulmonary distress. Vital signs noted as documented above. HEENT: Normocephalic, atraumatic. ??PERRLA, EOMI, no conjunctival injection, no scleral icterus. ??TMs not examined. ??Nares are with congestion / rhinorrhea. ??Cleft palate appreciated. ??Minor leftanterior tongue trauma noted as if she bit her tongue last night. ??No posterior pharyngeal erythema or tonsillar exudate. ??Dentition grossly intact. ??Mucous membranes are somewhat dry. NECK: Supple. No midline tenderness. No JVD. HEART: Tachycardic. ??S1 and S2. No murmur. LUNGS:??Coarse sounds bilaterally bilaterally.?Mild respiratory distress - tachypnea. ABDOMEN: Non-distended, non-tender without guarding, rebound or rigidity.? BACK: No midline TLS spine tenderness. ??No CVAT. ??No SI tenderness. EXTREMITIES: No unilateral leg swelling or posterior calf tenderness. No edema. NEUROLOGIC: No acute focal neurological deficit. Cerebral Palsy. SKIN: Warm and dry. No rash. VASCULAR: Radial 2+ bilaterally. Medical Decision Making: Fever, cough,??hypoxia. ??Suspect underlying??pneumonia.?? Confirmed on chest x- ray imaging. ??We will treat her primarily for hospital- acquired??pneumonia??with Levaquin intravenously.?? Anticipate hospitalization after ED work-up. Procedure No Qualifying Data Reexamination/Reevaluation 9:00 AM:??This patient's care has been transferred to the incoming physician. We discussed: the patient's chief complaint; labs and imaging that have been completed and those that are still pending; procedures that have been completed and those remaining to be done; any treatment provided and the patient's response to treatment; input from consultants (if any); the remaining treatment plan. The incoming physician will follow up on all pending labs and imaging, make any necessary changes to the current impression and/or treatment plan and provide a final disposition. Assessment/Plan 1.??Cerebral palsy??G80.9 2.??Pneumonia??J18.9 Orders: Normal Saline Flush, 10 mL, IV Flush, Injection, As Directed, PRN traffic line painter, First Dose: 07/15/22 7:46:00 EST, Routine Sodium Chloride 0.9% 1,000 mL, Total Volume (mL): 1,000, 1,000 mL, Soln-IV, IV Bolus, 999 mL/hr, Order Duration: 1 doses, Start Date: 07/15/22 7:46:00 EST, Stop Date: 07/15/22 8:45:00 EST, 40.37 kg, Populate Charting Weight From Order, 1.31, m2 Sodium Chloride 0.9% 1,000 mL, Total Volume (mL): 1,000, 1,000 mL, Soln-IV, IV, 125 mL/hr, Start Date: 07/15/22 7:46:00 EST, 40.37 kg, Populate Charting Weight From Order, 1.31, m2 .Manual Differential (LTTL), Blood, Stat, Collected, 07/15/22 7:47:00 EST, Once, Nurse collect, [id number] Blood Culture, Blood, Stat collect, ST - Stat, 07/15/22 7:46:00 EST, Once, Nurse collect, Print Label Blood Culture, Blood, Stat collect, ST - Stat, 07/15/22 7:46:00 EST, Once, Nurse collect, Print Label Comprehensive Metabolic Panel, Blood, Stat, 07/15/22 7:46:00 EST, Once, Nurse collect CV Electrocardiogram 12 Lead, 07/15/22 10:46:00 EST, Stat, Reason: Other (please specify), Frequency Once Stop date and time 07/15/22 10:46:00 EST, Sepsis, ORD_SET_REQ_DT_RANGE, Lesley's Internal Person Id Lactic Acid, Blood, Stat, 07/15/22 7:46:00 EST, Once, Nurse collect Procalcitonin, Blood, Stat, 07/15/22 7:46:00 EST, Once, Nurse collect Respiratory Panel 2.1 ([employer]), Nasopharyngeal Swab, Routine Collect, 07/15/22 7:46:00 EST, Once, Nurse collect, Print Label Urinalysis with Micro if Indicated and Culture if Indicated, Urine, Stat Collect, 07/15/22 7:46:00 EST, Once, Nurse collect, Print Label XR Chest 1 View, 07/15/22 7:46:00 EST, Stat, Reason: Sepsis, Transport Mode: Portable, Once Medication Reconciliation Unchanged baclofen (baclofen 10 mg oral tablet)1 tab Oral (given by mouth) 3 times a day. ?? fluticasone (Flovent HFA 110 mcg/inh inhalation aerosol)2 Puffs Inhale (breathe in) 2 times a day. ?? guaiFENesin (Robafen 200 mg/10 mL oral liquid)TAKE 15ML BY MOUTH THREE TIMES A DAY DIRECTED FOR CONGESTION, USES CHRONICALLY. ?? iron dextran (iron dextran 50 mg/mL injectable solution)250. 5 mls daily. ?? medroxyPROGESTERone (Depo-Provera Contraceptive 150 mg/mL intramuscular suspension)1 Milliliters Intramuscular (in a muscle) every 3 months. ?? nystatin topical (Nyamyc 100,000 units/g topical powder)1 Application Topical (on the skin) 2 timesa day. ?? scopolamine (scopolamine 1 mg/72 hr transdermal film, extended release)1 Film Topical (on the skin)every 72 hours. ?? triamcinolone topical (triamcinolone 0.1% topical cream)1 Application Topical (on the skin) 2 timesa day for 14 Days. Problem List/Past Medical History Ongoing Cerebral palsy Historical No qualifying data Medication Administration Given Sodium Chloride 0.9%, 1000 mL, IV Bolus acetaminophen, 1000 mg, IV Piggyback Normal Saline Flush, 10 mL, IV Flush Allergies Augmentin??(Unknown) Social History Electronic Cigarette/Vaping Electronic Cigarette Use: Never. Tobacco Never tobacco user Tobacco Use:. Family History Non-Contributory Lab Results CBC and Differential?? LATEST RESULTS?? WBC?? 07/15/22 07:47?? 3.9 ??Low?? RBC?? 07/15/22 07:47?? 3.60 ??Low?? Hgb?? 07/15/22 07:47?? 9.6 ??Low?? Hct?? 07/15/22 07:47?? 30.3 ??Low?? MCV?? 07/15/22 07:47?? 84.2?? MCH?? 07/15/22 07:47?? 26.7 ??Low?? MCHC?? 07/15/22 07:47?? 31.7 ??Low?? RDW-CV?? 07/15/22 07:47?? 14.9 ??High?? Platelets?? 07/15/22 07:47?? 215?? MPV?? 07/15/22 07:47?? 11.2 ??High? Infectious Disease?? LATEST RESULTS?? SARS-CoV or CoV-2 (COVID-19) Ag (Chanda)?? 07/15/22 06:58?? Negative?? Employed in healthcare??? 07/15/22 06:58?? Unknown?? Symptomatic as defined by CDC??? 07/15/22 06:58?? Unknown?? Date of onset (Lab)?? 07/15/22 06:58?? Unknown?? Hospitalized due to COVID-19??? 07/15/22 06:58?? Unknown?? In ICU??? 07/15/22 06:58?? Unknown?? Group care resident??? 07/15/22 06:58?? Unknown?? status??? 07/15/22 06:58?? Unknown? Electronically Signed on 07/15/22 08:49 AM Tello De La Torre, DO Nutrition and dietetics Progress note * Kaley Cooper: PERFORM Event Display: Nutrition Note Authored Date: Assessment and Monitoring Nutrition referral automatically sent d/t poor intake. Bambi is 21 yo F with cerebral palsy who is nonverbal. Had virus and was dehydrated- resolved now,??Doesn't eat, on TF via GJ tube. Care givers brought in own tube feeding, receiving bolus TF Nutren 1.5 3x/day. Is low weight but stable. Meeting estimated needs,. ??Is discharging today, doesn't appear to??have any??acute nutrition concerns at discharge. ?? Nutrition Goals No s/sx aspiration Weight stable Labs WNL Anthropometrics/Estimated Needs Lvjoph69.460 kg(Recorded: 07/15/2022 14:36 EST) Gqjqym313.400 cm(Recorded: 07/15/2022 14:36 EST) Body Mass Index18.280 kg/m2(Recorded: 07/15/2022 14:36 EST) Estimated Energy Needs: 1260-1470kcal (30-35kcal/kg actual BW) Estimated Fluid Needs: 1260-1470ml (1ml/kcal) Estimated Protein Needs: 62-63g (1.0-1.5g/kg actual BW) Reason for Visit lethargy, fever Problem List/Past Medical History Ongoing Cerebral palsy Historical No qualifying data Social History Alcohol Never Electronic Cigarette/Vaping Electronic Cigarette Use: Never. Home/Environment Lives with with caregivers. Living situation: Home with assistance. Home equipment: Hospital bed, Nebulizer, Pulse oximeter, Suction unit, Wheelchair. Tobacco Never tobacco user Tobacco Use:. Diet Orders Diet Order, 07/16/22 12:11:00 EST, Custom (See Special Instructions), Using Tube feeding from home.Bolus 3x/day Nutren 1.5 via Gtube. Allergies Augmentin??(Unknown) Nutrition Lab Results Test Name Test Result Date/Time WBC 2.1 K/mcL 07/16/2022 06:43 EST Hgb 8.4 g/dL 07/16/2022 06:43 EST Hct 26.0 % 07/16/2022 06:43 EST MCV 83.9 fL 07/16/2022 06:43 EST Platelets 185 K/mcL 07/16/2022 06:43 EST Sodium Level 137 mmol/L 07/16/2022 06:43 EST Potassium Level 3.3 mmol/L 07/16/2022 06:43 EST Chloride Level 104 mmol/L 07/16/2022 06:43 EST CO2 24 mmol/L 07/16/2022 06:43 EST Alk Phos 34 IntlUnit/L 07/15/2022 07:47 EST ALT 28 IntlUnit/L 07/15/2022 07:47 EST BUN 9 mg/dL 07/16/2022 06:43 EST Glucose Level 107 mg/dL 07/16/2022 06:43 EST Creatinine Level 0.31 mg/dL 07/16/2022 06:43 EST Albumin Level 3.0 g/dL 07/15/2022 07:47 EST Bilirubin Total 0.1 mg/dL 07/15/2022 07:47 EST Medications Inpatient acetaminophen, 1000 mg= 100 mL, IV Piggyback, every 8 hr, PRN albuterol, 180 mcg= 2 puffs, Inhale, every 4 hr, PRN azithromycin, 250 mg= 1 tab, Oral, Daily baclofen, 10 mg= 1 tab, Oral, TID cefTRIAXone, 1 g= 50 mL, IV Piggyback, every 24 hr (lotus) enoxaparin, 30 mg= 0.3 mL, Subcutaneous, Daily fluticasone CFC free 110 mcg/inh inhalation aerosol, 1 inh, Inhale, BID guaiFENesin, 300 mg= 15 mL, Oral, TID ibuprofen, 400 mg= 2 tab, Oral, every 4 hr, PRN ipratropium-albuterol 0.5 mg-2.5 mg/3 mL inhalation solution, 3 mL, NEB, QID, PRN levalbuterol 1.25 mg/0.5 mL inhalation solution, 1.25 mg= 0.5 mL, NEB, every 6 hr LR 500 mL, 500 mL, IV Bolus melatonin 3 mg oral tablet, 3 mg= 1 tab, Oral, every night at bedtime, PRN Normal Saline Flush, 10 mL, IV Flush, As Directed, PRN [id number], 17 g= 1 EA, Oral, Daily, PRN scopolamine, 1 patch, TD, every 48 hr scopolamine Patch Removal, 1 L, Topical, every 48 hr triamcinolone 0.1% topical cream, 1 suzy, Topical, BID Home !-DuoNeb 0.5 mg-2.5 mg/3 mL inhalation solution, 3 mL, NEB, QID, PRN Albuterol (Eqv-ProAir HFA) 90 mcg/inh inhalation aerosol, 2 puffs, Inhale, every 4 hr, PRN baclofen 10 mg oral tablet, 10 mg= 1 tab, Oral, TID Depo-Provera Contraceptive 150 mg/mL intramuscular suspension, 150 mg= 1 mL, IM, every 3 mo Flovent HFA 110 mcg/inh inhalation aerosol, 2 puffs, Inhale, BID iron dextran 50 mg/mL injectable solution, 250 mg, NG Tube, Daily melatonin 3 mg oral tablet, 3 mg= 1 tab, Oral, every night at bedtime, PRN Nyamyc 100,000 units/g topical powder, 1 suzy, Topical, BID [id number] oral powder for reconstitution, 17 g, Oral, Daily, PRN Robafen 200 mg/10 mL oral liquid, 300 mg= 15 mL, Oral, TID scopolamine 1 mg/72 hr transdermal film, extended release, 1 film, Topical, every 48 hr triamcinolone 0.1% topical cream, 1 suzy, Topical, BID Electronically Signed on 07/18/22 11:06 AM Kaley Cooper Progress note * Nino Hauser MD: PERFORM, MODIFY Event Display: Progress Note - Physician Authored Date: [id number] BAMBI MCGRAW :2000 Age:21 years Sex:Female Visit Date:07/15/2022 Subjective The patient is nonverbal. Review of Systems Patient is nonverbal. Objective Vitals & Measurements T:??36.0?C ??(Temporal Artery)?? TMIN:??36.0?C ??(Temporal Artery)?? TMAX:??36.6?C ??(Temporal Artery)?? HR:??120??(Peripheral)?? RR:??24?? BP:??133/76?? SpO2:??92%?? O2 Therapy:??Room air?? Physical Exam General: The patient is much more alert and animated with staff today.?? HENT:??Normocephalic, clear tympanic membranes, normal hearing, moist oral mucosa, no scleral icterus, no sinus tenderness.?? Lungs: Lungs have improved air movement, decreased rhonchi.?? Heart: Mildly tachycardic. Abdomen:??Soft, non-tender, non-distended, normal bowel sounds, no masses.?? Musculoskeletal:??Normal range of motion and strength, no tenderness or swelling. Skin:??Skin is warm, dry and pink, no rashes or lesions. Neurologic:??Awake, alert and oriented X4, CN I-XII intact ?? Lab Results Labs??(Last four charted values) WBC ?C??2.1?(JUL 17)?C??2.1?(JUL 16)?L??3.9?(JUL 15) Hgb ?L??8.9?(JUL 17)?L??8.4?(JUL 16)?L??9.6?(JUL 15) Hct ?L??27.5?(JUL 17)?L??26.0?(FEB 28)?L??30.3?(FEB 27) Plt ?211?(MAR )?185?(FEB 28)?215?(FEB 27) Na ?136?(MAR )?137?(FEB 28)?135?(FEB 27) K ?3.9?(MAR )?L??3.3?(FEB 28)?L??3.4?(FEB 27) CO2 ?L??20?(MAR )?24?(FEB 28)?22?(FEB 27) Cr ?L??<0.30?(MAR )?L??0.31?(FEB 28)?L??0.40?(FEB 27) BUN ?L??7?(MAR )?9?(FEB 28)?9?(FEB 27) Glucose Random ?96?(MAR )?H??107?(FEB 28)?105?(FEB 27) Assessment/Plan 1.??Viral illness??B34.9 Supportive care. ??Neutropenia most likely secondary to such. ??Neutropenic precautions. 2.??Pneumonia??J18.9 Significant improvement, maintain Rocephin and azithromycin. ??DC on Augmentin. 3.??Cerebral palsy??G80.9 Pain current regimen. 4.??Urinary tract infection??N39.0 E. coli sensitive to ceftriaxone. 5.??Fluid depletion??E86.9 Gentle hydration and maintain feeds. ?? Time??spent on patient care today is 40 minutes. Orders: enoxaparin, 40 mg = 0.4 mL, Subcutaneous, Injection, Daily, First Dose: 07/18/22 9:00:00 EST, Routine Diet Order, 07/17/22 8:44:00 EST, Neutropenic DPOA - Activate Durable Power Of Attornery, 07/16/22 14:03:00 EST, Constant order, Pt has state guardian. Marika Gaston. [phone] Patient Isolation, 07/17/22 8:44:00 EST, Neutropenic Electronically Signed on 07/17/22 09:51 AM Nino Hauser MD * Nino Hauser MD: PERFORM Event Display: Progress Note - Physician Authored Date: [id number] BAMBI MCGRAW :2000 Age:21 years Sex:Female Visit Date:07/15/2022 Subjective The patient is nonverbal. Review of Systems The patient is nonverbal. Objective Vitals & Measurements T:??36.6?C ??(Axillary)?? T:??36.0?C ??(Temporal Artery)?? TMIN:??36.0?C ??(Temporal Artery)?? TMAX:??38.2?C ??(Temporal Artery)?? HR:??118??(Peripheral)?? RR:??18?? BP:??124/88?? SpO2:??95%?? HT:??152.400??cm?? WT:??42.460??kg?? BMI:??18.280?? O2 Therapy:??Room air?? Physical Exam General: Contracted, nonverbal.?? HENT:??Normocephalic, clear tympanic membranes, normal hearing, moist oral mucosa, no scleral icterus, no sinus tenderness.?? Lungs: Rhonchi in the mid lung field.?? Heart:??Normal rate, regular rhythm, no murmur, gallop or edema. Abdomen:??Soft, non-tender, non-distended, normal bowel sounds, no masses.?? Musculoskeletal:??Normal range of motion and strength, no tenderness or swelling. Skin:??Skin is warm, dry and pink, no rashes or lesions. Neurologic:??Awake, alert and oriented X4, CN I-XII intact Lab Results Last 24 Hours?? Chemistry ? Event Name?? Event Result?? Date/Time?? Sodium Level 137 mmol/L 07/16/22 06:43:00 Potassium Level 3.3 mmol/L??Low 07/16/22 06:43:00 Chloride Level 104 mmol/L 07/16/22 06:43:00 CO2 24 mmol/L 07/16/22 06:43:00 BUN 9 mg/dL 07/16/22 06:43:00 Glucose Level 107 mg/dL??High 07/16/22 06:43:00 Creatinine Level 0.31 mg/dL??Low 07/16/22 06:43:00 BUN/Creat Ratio 29??High 07/16/22 06:43:00 Calcium Level 8.1 mg/dL??Low 07/16/22 06:43:00 Anion Gap 9 07/16/22 06:43:00 Lactic Acid Lvl 1.8 mmol/L 07/15/22 22:57:10 Osmolality 273 mOsm/kg??Low 07/16/22 06:43:00 eGFR CKD-EPI 152 mL/min/1.73 m2 07/16/22 06:43:00 ? Hematology ? Event Name?? Event Result?? Date/Time?? WBC 2.1 K/mcL??Critical 07/16/22 06:43:00 RBC 3.1 Million/mcL??Low 07/16/22 06:43:00 Hgb 8.4 g/dL??Low 07/16/22 06:43:00 Hct 26 %??Low 07/16/22 06:43:00 MCV 83.9 fL 07/16/22 06:43:00 MCH 27.1 pg 07/16/22 06:43:00 MCHC 32.3 g/dL 07/16/22 06:43:00 RDW-CV 15.2 %??High 07/16/22 06:43:00 Platelets 185 K/mcL 07/16/22 06:43:00 MPV 11.9 fL??High 07/16/22 06:43:00 Segs Man 37 07/16/22 06:43:00 Lymph Man 58 %??High 07/16/22 06:43:00 Stephens Man 3 % 07/16/22 06:43:00 Eos Man 0 % 07/16/22 06:43:00 Baso Man 0 % 07/16/22 06:43:00 Band Man 2 % 07/16/22 06:43:00 Abs Neut Man 0.8 K/mcL??Low 07/16/22 06:43:00 Abs Lymph Man 1.2 K/mcL 07/16/22 06:43:00 Abs Stephens Man 0.1 K/mcL 07/16/22 06:43:00 Abs Eos Man 0 K/mcL 07/16/22 06:43:00 Abs Baso Man 0 K/mcL 07/16/22 06:43:00 RBC Morph Normal 07/16/22 06:43:00 Plt Estimation Normal 07/16/22 06:43:00 ? Assessment/Plan 1.??Viral illness??B34.9 Supportive care, fluid, she is not requiring oxygen. 2.??Pneumonia??J18.9 Potential secondary bacterial pneumonia, ceftriaxone, azithromycin. ??Cultured. 3.??Cerebral palsy??G80.9 Maintain current regimen including baclofen, feeds 4.??Urinary tract infection??N39.0 Strep group A, on Rocephin. ??Await sensitivities. 5.??Fluid depletion??E86.9 LR at 100 mL an hour. ?? Time spent on patient care today is 40 minutes. Electronically Signed on 07/16/22 10:52 AM Nino Hauser MD History and physical note * Zac Kiser MD: PERFORM Event Display: History and Physical Authored Date: [id number] BAMBI MCGRAW :2000 Age:21 years Sex:Female Visit Date:07/15/2022 Chief Complaint lethargy, fever History of Present Illness Female with severe cerebral palsy presents??in setting of roommate being ill??with the patient having??multiple days of productive thick cough with a day or so of fever??along with some??vomiting of tube feeds??and appearing irritable??coronary caretakers you know her very well.?? Patient is largely nonverbal but??there is at the cues that they have followed and she appears to be more irritable and??has been crying some.?? Caretakers have not noted any rashes??or perceived abdominal pain.?? They thought there was little bit of redness around her feeding site and limited drainage around Review of Systems Patient unable to answer Physical Exam Vitals & Measurements T:??36.8?C ??(Temporal Artery)?? TMIN:??36.8?C ??(Temporal Artery)?? TMAX:??37.9?C ??(Tympanic)?? HR:??66??(Peripheral)?? RR:??20?? BP:??129/63?? SpO2:??94%?? HT:??152.400??cm?? WT:??42.460??kg?? BMI:??18.280?? O2 Therapy:??Room air?? General:??Patient??is awake does??make a bit of eye contact but does not respond to commands or listen.?? She does moan occasionally which the slide forming machine tender states is a bit different than baseline Eye:??PERRL, normal conjunctiva Lungs:??Somewhat junky rhonchorous lungs without significant wheezing, Non- labored respiration Heart:??Regular tacky, Normal rhythm, No murmur, No gallop Abdomen:??Soft, non-tender, non-distended, normal bowel sounds, no masses??feeding tube looks to beintact baby little bit of??pink around it??but no erythema no warmth no pus coming out. Assessment/Plan 1.??Pneumonia??J18.9 Parainfluenza positive but also pretty high procalcitonin we will treat with ceftriaxone and azithromycin. Ordered: azithromycin, 250 mg = 1 tab, Oral, Tab, Daily for 3 days, Antibiotic Indication Upper Respiratory Infection, First Dose: 07/16/22 9:00:00 EST, Stop Date: 07/19/22 8:59:00 EST, Physician Stop, Routine cefTRIAXone, 1 g = 50 mL, IV Piggyback, Injection, every 24 hr (lotus) for 3 days, Antibiotic Indication Upper Respiratory Infection, Administer over: 30 minutes, First Dose: 07/16/22 9:00:00 EST, StopDate: 07/19/22 8:59:00 EST, Physician Stop, Routine ?? 2.??Cerebral palsy??G80.9 Baseline??nonverbal, does appear to be in some pain per slide forming machine tender so we will order some Tylenol??and Motrin. Ordered: azithromycin, 250 mg = 1 tab, Oral, Tab, Daily for 3 days, Antibiotic Indication Upper Respiratory Infection, First Dose: 07/16/22 9:00:00 EST, Stop Date: 07/19/22 8:59:00 EST, Physician Stop, Routine cefTRIAXone, 1 g = 50 mL, IV Piggyback, Injection, every 24 hr (lotus) for 3 days, Antibiotic Indication Upper Respiratory Infection, Administer over: 30 minutes, First Dose: 07/16/22 9:00:00 EST, StopDate: 07/19/22 8:59:00 EST, Physician Stop, Routine ?? 3.??Urinary tract infection??N39.0 From a straight cath a bit of a dirty UA but??given hard to tell if she actually has symptoms with??air in side of treatment??with ceftriaxone??being given for pneumonia which should concomitantly treat this. ?? Note I will put her on DVT prophylaxis with 30 mg daily??I will also??continue her home meds including baclofen??and her home feeds at exact doses??for tube feeds.?? Also??she is a full code ?? Orders: acetaminophen, 1,000 mg = 100 mL, IV Piggyback, Injection, every 8 hr, PRN pain, mild, Administer over: 0.3 hr, First Dose: 07/15/22 15:13:00 EST, Routine, 400 mL/hr albuterol, 180 mcg, Inhale, Aerosol, every 4 hr, PRN wheezing, First Dose: 07/15/22 15:08:00 EST, Routine baclofen, 10 mg = 1 tab, Oral, Tab, TID, First Dose: 07/15/22 21:00:00 EST, Routine enoxaparin, 30 mg = 0.3 mL, Subcutaneous, Injection, Daily, First Dose: 07/16/22 9:00:00 EST, Routine fluticasone CFC free 110 mcg/inh inhalation aerosol, 1 patches, Inhale, Aerosol, BID, First Dose: 07/15/22 21:00:00 EST, Routine guaiFENesin, 1 MBq/kg, Oral, Liquid, As Directed, First Dose: 07/15/22 15:08:00 EST, Physician Stop, Routine ibuprofen, 400 mg = 2 tab, Oral, Tab, every 4 hr, PRN pain, mild, First Dose: 07/15/22 15:13:00 EST, Routine ipratropium-albuterol 0.5 mg-2.5 mg/3 mL inhalation solution, 1 kits, NEB, Soln, QID, PRN shortnessof breath, First Dose: 07/15/22 15:08:00 EST, Routine levalbuterol 1.25 mg/0.5 mL inhalation solution, 1.25 mg, NEB, Aerosol, every 6 hr, First Dose: 07/15/22 16:00:00 EST, Routine melatonin 3 mg oral tablet, 3 mg = 1 tab, Oral, Tab, every day at bedtime, PRN insomnia, First Dose: 07/15/22 15:09:00 EST, Routine [id number], 17 g, Oral, Powder-Recon, Daily, PRN constipation, First Dose: 07/15/22 15:09:00 EST, Routine scopolamine Patch Removal, 1 L, Topical, Film-ER, every 48 hr, First Dose: 07/15/22 16:00:00 EST, Routine triamcinolone 0.1% topical cream, 1 suzy, Topical, Cream, BID, First Dose: 07/15/22 21:00:00 EST, Routine Basic Metabolic Panel, Blood, Routine, 07/15/22 15:14:00 EST, Daily, for 3 days, Lab Collect CBC w/ Diff, Blood, Routine, 07/15/22 15:14:00 EST, Daily, for 3 days, Lab Collect [employer] [facility] Nursing Task, 07/15/22 15:08:00 EST, Stop date 07/15/22 15:08:00 EST, Follow home tube feeds. 0800, 1330, 1900. Nutren 1.5, supplied from home Oxygen Therapy, SpO2 goal 92% or greater, Stop date 07/15/22 15:13:00 EST Patient Condition, 07/15/22 15:13:00 EST, Condition Good/ Stable Pressure Ulcer Prevention, 07/15/22 15:13:00 EST PSO Admit to Inpatient, Anna, Inpatient, 07/15/22 11:58:00 EST, 07/15/22 11:58:00 EST, 07/15/22 11:58:00 EST, Less than 96 hours Resuscitation Status, 07/15/22 15:13:00 EST, Full Code Vital Signs, 07/15/22 15:13:00 EST, QID Problem List/Past Medical History Ongoing Cerebral palsy Historical No qualifying data Medications Inpatient acetaminophen, 1000 mg= 100 mL, IV Piggyback, every 8 hr, PRN albuterol, 180 mcg= 2 puffs, Inhale, every 4 hr, PRN azithromycin, 250 mg= 1 tab, Oral, Daily baclofen, 10 mg= 1 tab, Oral, TID cefTRIAXone, 1 g= 50 mL, IV Piggyback, every 24 hr (lotus) enoxaparin, 30 mg= 0.3 mL, Subcutaneous, Daily fluticasone CFC free 110 mcg/inh inhalation aerosol, 1 patches, Inhale, BID guaiFENesin, 300 mg= 15 mL, Oral, TID, PRN ibuprofen, 400 mg= 2 tab, Oral, every 4 hr, PRN ipratropium-albuterol 0.5 mg-2.5 mg/3 mL inhalation solution, 3 mL, NEB, QID, PRN levalbuterol 1.25 mg/0.5 mL inhalation solution, 1.25 mg, NEB, every 6 hr melatonin 3 mg oral tablet, 3 mg= 1 tab, Oral, every night at bedtime, PRN Normal Saline Flush, 10 mL, IV Flush, As Directed, PRN [id number], 17 g= 1 EA, Oral, Daily, PRN scopolamine, 1 patch, TD, every 48 hr scopolamine Patch Removal, 1 L, Topical, every 48 hr Sodium Chloride 0.9% 1,000 mL, 1000 mL, IV triamcinolone 0.1% topical cream, 1 suzy, Topical, BID Home !-DuoNeb 0.5 mg-2.5 mg/3 mL inhalation solution, 3 mL, NEB, QID, PRN Albuterol (Eqv-ProAir HFA) 90 mcg/inh inhalation aerosol, 2 puffs, Inhale, every 4 hr, PRN baclofen 10 mg oral tablet, 10 mg= 1 tab, Oral, TID Depo-Provera Contraceptive 150 mg/mL intramuscular suspension, 150 mg= 1 mL, IM, every 3 mo Flovent HFA 110 mcg/inh inhalation aerosol, 2 puffs, Inhale, BID iron dextran 50 mg/mL injectable solution, 250 mg, NG Tube, Daily melatonin 3 mg oral tablet, 3 mg= 1 tab, Oral, every night at bedtime, PRN Nyamyc 100,000 units/g topical powder, 1 suzy, Topical, BID [id number] oral powder for reconstitution, 17 g, Oral, Daily, PRN Robafen 200 mg/10 mL oral liquid scopolamine 1 mg/72 hr transdermal film, extended release, 1 film, Topical, every 48 hr triamcinolone 0.1% topical cream, 1 suzy, Topical, BID Allergies Augmentin??(Unknown) Social History Alcohol Never Electronic Cigarette/Vaping Electronic Cigarette Use: Never. Tobacco Never tobacco user Tobacco Use:. Electronically Signed on 07/15/22 03:24 PM Zac Kiser MD * Event Display: History and Physical Discharge summary * Nino Hauser MD: PERFORM, MODIFY Event Display: Discharge Summary Authored Date: [id number] BAMBI MCGRAW :2000 Age:21 years Sex:Female Visit Date:07/15/2022 Hospital Course This is a??21-year-old female with severe band cerebral palsy.?? She has caregivers 09/12. ??She hasa roommate that was ill. ?? The caregiver started to notice the patient had??unusual behavior, she was crying.?? They brought her to the emergency room. ?? In the emergency room the patient was noted to be positive for parainfluenza virus. There was a concern for secondary bacterial pneumonia. ?? Her blood pressure was low, she was tachycardic.?? She??was dehydrated. ?? For the viral illness the mainstay of treatment was supportive care. ??She is now on room air. ?? For the pneumonia she is started on ceftriaxone and azithromycin will complete a course of azithromycin with cefpodoxime and a probiotic. ?? She was fluid resuscitated and is getting her feeds appropriately. ?? She is more animated according to caregiver she is back to baseline. Physical Exam Vitals & Measurements T:??36.2?C ??(Axillary)?? TMIN:??35.8?C ??(Axillary)?? TMAX:??37.4?C ??(Axillary)?? HR:??100??(Peripheral)?? RR:??20?? BP:??118/88?? SpO2:??96%?? O2 Therapy:??Room air?? General: Much more alert and animated.?? HENT: No sign of thrush.?? Lungs: Lungs sound better.?Less rhonchi, quite close to clear. Heart: [Normal rate, regular rhythm, no murmur, gallop or edema]. Abdomen: [Soft, non-tender, non-distended, normal bowel sounds, no masses].?? Musculoskeletal: [Normal range of motion and strength, no tenderness or swelling]. Skin: [Skin is warm, dry and pink, no rashes or lesions]. Neurologic: Baseline Medications Inpatient acetaminophen, 1000 mg= 100 mL, IV Piggyback, every 8 hr, PRN albuterol, 180 mcg= 2 puffs, Inhale, every 4 hr, PRN azithromycin, 250 mg= 1 tab, Oral, Daily baclofen, 10 mg= 1 tab, Oral, TID cefTRIAXone, 1 g= 50 mL, IV Piggyback, every 24 hr (lotus) enoxaparin, 40 mg= 0.4 mL, Subcutaneous, Daily fluticasone CFC free 110 mcg/inh inhalation aerosol, 1 inh, Inhale, BID guaiFENesin, 300 mg= 15 mL, Oral, TID ibuprofen, 400 mg= 2 tab, Oral, every 4 hr, PRN ipratropium-albuterol 0.5 mg-2.5 mg/3 mL inhalation solution, 3 mL, NEB, QID, PRN Lactated Ringers Injection 1,000 mL, 1000 mL, IV levalbuterol 1.25 mg/0.5 mL inhalation solution, 1.25 mg= 0.5 mL, NEB, every 6 hr melatonin 3 mg oral tablet, 3 mg= 1 tab, Oral, every night at bedtime, PRN Normal Saline Flush, 10 mL, IV Flush, As Directed, PRN [id number], 17 g= 1 EA, Oral, Daily, PRN scopolamine, 1 patch, TD, every 48 hr scopolamine Patch Removal, 1 L, Topical, every 48 hr triamcinolone 0.1% topical cream, 1 suzy, Topical, BID Home !-DuoNeb 0.5 mg-2.5 mg/3 mL inhalation solution, 3 mL, NEB, QID, PRN Albuterol (Eqv-ProAir HFA) 90 mcg/inh inhalation aerosol, 2 puffs, Inhale, every 4 hr, PRN azithromycin 250 mg oral tablet, 250 mg= 1 tab, Oral, Daily baclofen 10 mg oral tablet, 10 mg= 1 tab, Oral, TID cefpodoxime 200 mg oral tablet, 200 mg= 1 tab, Oral, every 12 hr Depo-Provera Contraceptive 150 mg/mL intramuscular suspension, 150 mg= 1 mL, IM, every 3 mo Flovent HFA 110 mcg/inh inhalation aerosol, 2 puffs, Inhale, BID iron dextran 50 mg/mL injectable solution, 250 mg, NG Tube, Daily melatonin 3 mg oral tablet, 3 mg= 1 tab, Oral, every night at bedtime, PRN Nyamyc 100,000 units/g topical powder, 1 suzy, Topical, BID [id number] oral powder for reconstitution, 17 g, Oral, Daily, PRN Robafen 200 mg/10 mL oral liquid, 300 mg= 15 mL, Oral, TID scopolamine 1 mg/72 hr transdermal film, extended release, 1 film, Topical, every 48 hr triamcinolone 0.1% topical cream, 1 suzy, Topical, BID Social History Alcohol Never Electronic Cigarette/Vaping Electronic Cigarette Use: Never. Home/Environment Lives with with caregivers. Living situation: Home with assistance. Home equipment: Hospital bed, Nebulizer, Pulse oximeter, Suction unit, Wheelchair. Tobacco Never tobacco user Tobacco Use:. Discharge Plan 1.??Viral illness??B34.9 Supportive care. ??Presumption of leukopenia due to viral illness. ??Recheck with PCP??in 1 to 2 weeks. ?? 2.??Pneumonia??J18.9 Course of??azithromycin, cefpodoxime, and probiotic Ordered: azithromycin 250 mg oral tablet, 250 mg = 1 tab, Oral, Daily, 0 Refill(s) ?? 3.??Cerebral palsy??G80.9 Maintain baseline medications. Ordered: azithromycin 250 mg oral tablet, 250 mg = 1 tab, Oral, Daily, 0 Refill(s) ?? 4.??Urinary tract infection??N39.0 Cephalosporin sensitive E. coli. ?? 5.??Fluid depletion??E86.9 . ?? Orders: cefpodoxime 200 mg oral tablet, 200 mg = 1 tab, Oral, every 12 hr, # 8 tab, 0 Refill(s), called to pharmacy (Rx) Discharge Patient, 07/18/22 10:15:00 EST, Home with Responsible Caregiver All Diagnoses This Visit Viral illness Pneumonia Cerebral palsy Urinary tract infection Fluid depletion Patient Discharge Condition Stable. Discharge Disposition Home with Caregivers and PCP follow-up. ?? Time spent in patient care today is 40 minutes. Patient Education Viral Illness, Adult Follow Up With When Contact Information Follow up with primary care provider Within 1 to 2 weeks Additional Instructions: Medication Reconciliation New Prescription azithromycin (azithromycin 250 mg oral tablet)1 tab Oral (given by mouth) every day for 2 Days. ?? cefpodoxime (cefpodoxime 200 mg oral tablet)1 tab Oral (given by mouth) every 12 hours for 4 Days. Refills: 0. ?? Changed guaiFENesin (Robafen 200 mg/10 mL oral liquid)15 Milliliters Oral (given by mouth) 3 times a day. DIRECTED WITH TUBE FEEDINGS. ?? Unchanged albuterol (Albuterol (Eqv-ProAir HFA) 90 mcg/inh inhalation aerosol)2 Puffs Inhale (breathe in) every 4 hours as needed as needed for wheezing. ?? baclofen (baclofen 10 mg oral tablet)1 tab Oral (given by mouth) 3 times a day. ?? fluticasone (Flovent HFA 110 mcg/inh inhalation aerosol)2 Puffs Inhale (breathe in) 2 times a day. ?? ipratropium-albuterol (!-DuoNeb 0.5 mg-2.5 mg/3 mL inhalation solution)3 Milliliters Nebulized inhalation (inhale using nebulizer) 4 times a day as needed as needed for shortness of breath or wheezing. ?? iron dextran (iron dextran 50 mg/mL injectable solution)250 Milligrams Nasogastric Tube every day. 5 mls daily. ?? medroxyPROGESTERone (Depo-Provera Contraceptive 150 mg/mL intramuscular suspension)1 Milliliters Intramuscular (in a muscle) every 3 months. ?? melatonin (melatonin 3 mg oral tablet)1 tab Oral (given by mouth) every night at bedtime as needed as needed for insomnia. ?? nystatin topical (Nyamyc 100,000 units/g topical powder)1 Application Topical (on the skin) 2 timesa day. ?? polyethylene glycol 3350 ([id number] oral powder for reconstitution)17 Gram Oral (given by mouth) every day as needed constipation. ?? scopolamine (scopolamine 1 mg/72 hr transdermal film, extended release)1 Film Topical (on the skin)every 48 hours. ?? triamcinolone topical (triamcinolone 0.1% topical cream)1 Application Topical (on the skin) 2 timesa day for 14 Days. Electronically Signed on 07/18/22 10:32 AM Nino Hauser MD XR Chest Single view * Bruce Clemens MD: VERIFY, VERIFY Event Display: Report EXAM DESCRIPTION: XR Chest 1 View 07/15/2022 INDICATION: SEPSIS COMPARISON: None IMPRESSION: Patchy areas of infiltrate in the right mid-lower lung field and left lung base region suspicious for pneumonia Normal cardiac size. Mild fullness in the right paratracheal region which may reflect mild adenopathy or vascular structures No significant pleural effusion or pneumothorax. JOB #: [id number] Final Signed by: Bruce Clemens MD Signed (Electronic Signature): 07/15/2022 8:19 am Patient Care team information Care Team Personnel Name: Jena Pastor MD Position: Physician Member Role: ED Physician Address: Address: [address] [place] [address] Name: Eloisa Bansal Position: Nurse Member Role: Registered Nurse Name: Tello De La Torre DO Position: Physician Member Role: Physician Address: Address: [address] [place] [id number]
--- OUTSIDE RECORDS SUMMARY | 2022-10-01 20:30 | XMS_ITS ---
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 Active [id number] 8 Problem Feeding by G-tube Z93.1 Active 407720580 Problem 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 Active 32632309 ALLERGIES Substance Reaction Event Type Date Status Augmentin Unknown Drug Allergy Jan, Active ENCOUNTERS Encounter Location Date Diagnosis [facility] [address], [address] [place], [place] [id number] Jan, Recurrent acute serous otitis media of both ears H65.06 ; Failure to thrive in adult R62.7 ; Feeding by G-tube Z93.1 ; 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 and 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 [facility] [address], [address] [place], [place] [id number] Dec, IMMUNIZATIONS No Known Immunizations SOCIAL HISTORY Never Assessed REASON FOR REFERRAL FUNCTIONAL STATUS PLAN OF CARE Activity Details VITAL SIGNS Weight 70 lb 4 oz lbs 2018-02-02 MEDICATIONS Medication Instructions Dosage Frequency Start Date End Date Duration Status Desitin 13 % Externally 8 time(s) a day 1 application to affected area Active Mucinex Cough Childrens 5-100 MG/5ML Orally every 4 hrs 10 ml 4h Active Flovent HFA 110 MCG/ACT Inhalation Twice a day 1 puff 12h Active Ensure Complete Shake - Active MiraLax - Active Triamcinolone Acetonide 0.1 % Externally Twice a day 1 application to affected area 12h Active ProAir HFA 108 (90 Base) MCG/ACT Inhalation every 6 hrs 2 puffs as needed 6h Active Bisacodyl 10 MG Rectal Once a day 1 suppository as needed 24h Active FeverAll Derrick Strength 325 MG Rectal every 6 hrs 2 suppositories as needed 6h Active PROCEDURES No Known procedures RESULTS No Results REASON FOR VISIT ENT [employer]CR[employer]E [employer] [place] chronic om, bilateral, PFP, New Patient, preload chart Insurance Providers Health Insurance Type Health Plan Insurance Address Health Plan Insurance Phone Health Plan Insurance Name Health Plan Coverage Dates Member ID Patient Relationship to Subscriber Patient Address Patient Phone Patient Name Patient Date of Subscriber ID Subscriber Name Subscriber Date of Group No [facility] DO NOT BILL (Write Off) [address] [facility] [id number] [facility] - DO NOT BILL (Write Off) self Bambi Sadnerson [id number] MEDICARE PART A [address] [facility] [address] MEDICARE PART A self Bambi Sanderson [id number] [place]ICA[place] [address] [facility] [id number] [place] MEDICAID self Bambi Sanderson [id number]
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
--- NOTE | 2022-10-01 20:45 | DI.RAD_ITS ---
Exam(s) XR ABDOMEN FLAT PLATE EXAM: 2D digital imaging was performed. CLINICAL HISTORY: confirm PEG tube placement. COMPARISON: CR XR HIP PELVIS ADULT BL from 11/02/2019 CR XR CHEST 2V PA LATERAL from 04/09/2022 TECHNIQUE: A single portable semi upright view of the abdomen and upper pelvis was performed. FINDINGS: A PEG tube is noted. There is a small amount of contrast seen in the stomach. There is no evidence of contrast outside the stomach. The bowel gas pattern is unremarkable with the exception of increas ed stool. Visualized lung bases are clear. IMPRESSION: Peg tube appears properly positioned within the stomach. DATA REPOSITORY: RADIATION DOSE DELIVERED:
[2022-10-01] MEDS: Gastrografin 120 ML BTL IVP (21:39)
--- NOTE | 2022-10-01 22:29 | DI.VRAD_ITS ---
PROCEDURE INFORMATION: Exam: XR Abdomen Exam date and time: 10/01/2022 9:06 PM Age: 21 years old Clinical indication: GI device placement; Confirm peg tube placement TECHNIQUE: Imaging protocol: Radiologic exam of the abdomen. Views: Frontal supine view of the abdomen. 1 View. COMPARISON: CT ABD PELVIS WO CONTRAST 06/01/2017 3:59 PM FINDINGS: Tubes, catheters and devices: Contrast material was infused through the gastrostomy tube with the opacification of the proximal gastric lumen. Satisfactory position of gastrostomy tube within the gastric body. No extravasation of contrast material. Gastrointestinal tract: No dilated small or large bowel loops. Satisfactory position of gastrostomy tube within the gastric body. Bones/joints: Unremarkable. IMPRESSION: Satisfactory position of gastrostomy tube within the gastric body. Dictated and Authenticated by: Kalia Little MD. Ordering:CHRISTOPHER Meza MD
[2022-10-01 22:34] VITALS: PULSE 69; O2SAT 93
== END 2022-10-01 22:38 | disposition home or self-care (01) ==
PROVIDERS: Emergency Provider Physician Assistant; PCP Family Medicine
DX: K94.20 Gastrostomy complication, unspecified (principal); Z97.8 Presence of other specified devices; F81.89 Other developmental disorders of scholastic skills; G80.9 Cerebral palsy, unspecified
CPT/HCPCS: 43762; 99284; 74018

== ENCOUNTER 2022-11-04 13:31 | Outpatient (REF) | payer MEDICARE, MEDICAID, SELFPAY ==
[2022-11-04 17:25] LABS: HCT 35.5 % (36.0-46.0); HGB 11.3 g/dL (11.2-15.7); MCH 26.7 pg (27.0-33.0); MCHC 31.8 % (32.0-36.0); MCV 84 fL (80-95); MPV 11.2 fL (8.0-11.0); Platelet Count 361 10^3/uL (130-400); RBC 4.23 10^6/uL (3.93-5.22); RDW 14.2 % (11.7-14.6); RDW-SD 43.3 fL; WBC 3.56 10^3/uL (4.4-10.8)
[2022-11-04 17:32] LABS: ESR 47 mm/hr (0-20)
[2022-11-04 18:09] LABS: ALT 26 U/L (14-59); AST 18 U/L (15-37); Albumin 3.4 g/dL (3.4-5.0); Alkaline Phosphatase 66 U/L (46-116); Anion Gap 9.5 mmol/L (3-11); BUN 11 mg/dL (7-18); Bilirubin, Total 0.2 mg/dL (0.2-1.0); CO2 26.5 mmol/L (21.0-32.0); CREATININE 0.4 mg/dL (0.55-1.02); Calcium 9.2 mg/dL (8.5-10.1); Chloride 104 mmol/L (98-107); Estimated GFR 142.54 (mL/min/1.73m2); Glucose 90 mg/dL (74-106); Potassium 3.9 mmol/L (3.5-5.1); Sodium 140 mmol/L (136-145); Total Protein 7.5 g/dL (6.4-8.2)
[2022-11-04 18:52] LABS: Iron 92 ug/dL (50-170)
[2022-11-04 19:04] LABS: Folate > 20.0 ng/mL (8.6-20.0)
== END 2022-11-04 13:32 | disposition home or self-care (01) ==
LOC: NCHCN 13:31
PROVIDERS: PCP Family Medicine; Visit Provider Family Medicine
DX: D64.9 Anemia, unspecified (principal); R70.0 Elevated erythrocyte sedimentation rate; N94.6 Dysmenorrhea, unspecified
CPT/HCPCS: 80053; 85027; 85652; 82746; 83540; 86140

== ENCOUNTER 2022-12-19 17:58 | Outpatient (REF) | payer MEDICARE, MEDICAID, SELFPAY ==
--- NOTE | 2022-12-19 11:30 | SKI_PTH ---
PATIENT: Bambi Sanderson LOC: [facility] U#:[id number] AGE/SX: 21/F ROOM: RE12/19/[address]: Karely Nguyen V : 2000 BED: DIS: 12/19/2022 SPEC #: [id number] RECD: 12/20/22 12:49 STATUS: JEANINE LYNCH #: [id number] KATIANA: 12/19/22 11:[address]: Karely Nguyen V DEPT: Surgical Specimen RECD BY: Roberta Polo Tissues: 1 - SKIN BIOPSY(SHAVE/PUNCH) Procedures: SPECIAL STAIN 2 SKIN LEVEL 4 Comments: [id number]
== END 2022-12-19 17:59 | disposition home or self-care (01) ==
LOC: NCHCN 17:58
PROVIDERS: PCP Family Medicine; Visit Provider Family Medicine
DX: L30.8 Other specified dermatitis (principal); R21 Rash and other nonspecific skin eruption
CPT/HCPCS: 88305; 88313